=== PATIENT | female | born 1950 | race Caucasian/White ===

== ENCOUNTER 2019-11-01 05:18 | Day surgery (SDC) | payer MEDICARE, OTHER, SELFPAY ==
[2019-11-01] VITALS (9 sets, daily range): BP systolic 106–127; BP diastolic 67–77; PULSE 54–65; RESP 14–19; TEMP 36.7–36.8; O2SAT 96–100; BMI 24.5
[2019-11-01 07:44] LABS: Basophils Absolute Auto 0.1 K/mm3 (0.0-0.1); Eosinophils Absolute Auto 0.3 K/mm3 (0-0.3); Eosinophils Percent Auto 6.3 % (0-4.4); Hematocrit 37.1 % (37.0-47.0); Hemoglobin 12.3 g/dL (12.0-15.0); Lymphocytes Absolute Auto 1.44 K/mm3 (0.9-3.2); Lymphocytes Percent Auto 29.3 % (18.3-44.2); Mean Corpuscular HGB Conc 33.2 g/dl (32-36); Mean Corpuscular Hemoglobin 29.6 pg (26-34); Mean Corpuscular Volume 89.4 fl (80-100); Mean Platelet Volume 9.9 fl (7.4-10.4); Monocytes Absolute Auto 0.7 K/mm3 (0.1-0.6); Monocytes Percent Auto 13.4 % (2.6-8.5); Neutrophils Absolute Auto 2.5 K/mm3 (1.3-6.7); Platelet Count Result 216 k/mm3 (150-375); Red Blood Count 4.15 M/mm3 (4.2-5.4); Red Cell Distribution Width 13.4 % (11.5-14.5); White Blood Count 4.9 K/mm3 (4.5-10.0)
[2019-11-01 07:55] LABS: Blood Urea Nitrogen 18 mg/dL (7-17); Calcium 10.3 mg/dL (8.4-10.2); Carbon Dioxide 27 mmol/L (22-30); Chloride 106 mmol/L (98-107); Estimated Glomerular Filt Rate 45; Glucose 98 mg/dL (65-105); Potassium 3.9 mmol/L (3.4-5.0); Sodium 140 mmol/L (137-145)
[2019-11-01 08:01] LABS: INR 0.9; Prothrombin Time 12.1 Seconds (11.1-14.7)
--- NOTE | 2019-11-01 08:21 | WPDMODSED ---
Moderate Sedation Note-Pt Data Patient Data Diagnosis: Coronary artery disease with previous anterior wall MA and PCI Recent episode of chest pain Nuclear stress with abnormal finding per chart Present Complaint: No complaints this morning Procedure to be performed/Plan: Left heart catheterization Allergies Allergy/AdvReac Type Severity Reaction Status Date / Time niacin Allergy Intermediate Hives / Verified 09/02/19 07:00 Red Face Sulfa (Sulfonamide Allergy Mild Unknown Verified 09/02/19 07:00 Antibiotics) Home Medications Medication Instructions Recorded Confirmed Type atenolol [Tenormin] 25 mg PO DAILY 08/27/19 11/01/19 History atorvastatin [Lipitor] 40 mg PO DAILY 08/27/19 11/01/19 History lamotrigine [Lamictal] 100 mg PO DAILY 08/27/19 11/01/19 History aspirin 81 mg PO DAILY 11/01/19 11/01/19 History calcium carbonate-vitamin D3 1 tablet PO BID 11/01/19 11/01/19 History [Calcium 500 + D] levothyroxine [Tirosint] 50 mcg PO DAILY 11/01/19 11/01/19 History nitroglycerin [Nitrostat] 0.4 mg SUBLINGUAL ONCE 11/01/19 11/01/19 History Current Medications: Active Medications Sodium Chloride (Normal Saline Iv) 500 mls @ 100 mls/hr IV CONT .Q5H [facility] Sedation/Anesthesia: No previous sedation/anesthesia problems (including family history). [facility] Past Medical History Medical History (Updated 09/02/19 @ 07:16 by Herman Chavez DO) Bipolar affect, depressed CAD (coronary artery disease) Hypothyroidism Surgical History Surgical History (Updated 09/02/19 @ 07:16 by Herman Chavez DO) History of coronary artery stent placement 2010 Social History Social History Gender identity (if verbalized by the patient): Female Mod Sed Physical Exam Physical Exam Pre Procedural Exam: Normal: Appearance, Neck, Throat, Airway, Lungs, Heart Size, Heart Rate, Heart Rhythm, Neuro Exam and Extremities Hours since solid foods: 12 Hours since liquid intake: 12 Internal Medicine - PN: Obj Da Meds/Results Medications: Active Medications Generic Name Dose Route Start Last Admin Trade Name Freq PRN Reason Stop Dose Admin Sodium Chloride 500 mls @ 100 mls/hr 11/01/19 06:10 Normal Saline Iv IV CONT .Q5H BELL Labs CBC & Chem 7: 11/01/19 07:37 11/01/19 07:37 Labs: Laboratory Results - last 24 hr 11/01/19 11/01/19 11/01/19 07:37 07:37 07:37 WBC 4.9 RBC 4.15 L Hgb 12.3 Hct 37.1 MCV 89.4 MCH 29.6 MCHC 33.2 RDW 13.4 Plt Count 216 MPV 9.9 Immature Gran % (Auto) 0.0 Neut % (Auto) 50.0 Lymph % (Auto) 29.3 [place] % (Auto) 13.4 H Eos % (Auto) 6.3 H Baso % (Auto) 1.0 Lymph # (Auto) 1.44 [place] # (Auto) 0.7 H Eos # (Auto) 0.3 Baso # (Auto) 0.1 Abs Immat Gran (auto) 0.00 Absolute Neuts (auto) 2.5 Absolute Nucleated RBC 0.0 Nucleated RBC % 0.0 PT 12.1 INR 0.9 Sodium 140 Potassium 3.9 Chloride 106 Carbon Dioxide 27 BUN 18 H Creatinine 1.20 H Estim Creat Clear Calc Not Reportable Estimated GFR 45 L Glucose 98 Calcium 10.3 H ASA Classification/Sedation ASA Classification/Sedation ASA Class: II Emergent: No Risks: Risks, benefits and alternatives explained and patient/family accepted plan for sedation. Patient re-evaluated immediately prior to sedation.
--- NOTE | 2019-11-01 09:19 | WPDCARDPROC ---
Cardiac Cath Procedure Note Date of procedure:: 11/01/19 Performing physician:: Clarke Bright MD Indication:: Recent episode of chest pain history of coronary disease with anterior wall MO in 2010 treated with emergency LAD stenting abnormal nuclear stress test Brief clinical history:: this 69-year-old patient who presented in 2010 with acute anterior infarction which time she underwent emergency PCI with stenting of mid LAD. She has done well following up and recently had an episode of chest pain which triggered a nuclear stress test and because of abnormal findings a follow-up angiogram has now been recommended. She is no longer reporting further symptoms Procedure Procedure performed:: left heart catheterization with left ventriculography and coronary angiography Angio-Seal to right femoral artery Sedation/Medication given:: fentanyl 50 mg Versed 2 mg case start time 858 case end time 913 sedation provided by Wagner Ba RN, trained observer Access site:: right femoral artery Estimated blood loss:: 15-20 cc Procedure note:: patient was brought to the cardiac catheterization lab in the postabsorptive state the right femoral triangle was prepared and draped in the usual fashion. Using the modified Seldinger technique the sheath was placed into the right femoral artery. Left heart catheterization was then carried out. A 5 Armenian angled pigtail catheter was used to measure left-sided hemodynamics and to injected LV g in a are AO projection. Following this the pigtail catheter was withdrawn and replaced with a JR4 catheter. This was used to engage inject the right coronary artery orthogonal projections. Following this a FL4 left coronary catheter was placed ascending aorta. I could not engage the left main with this catheter is at had a very superior takeoff. An F FL 3.5 catheter was then placed into the ascending aorta which easily engaged the left main. Angiography of the left coronary artery was then carried out over this the procedure was terminated and angiogram was done of the femoral artery through the sheath after which an Angio-Seal device deployed with a good hemostatic result. 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 Findings:: Hemodynamics: Central aortic pressure 150 over 82 ventricle 60 over 10 end-diastolic pressure 16 there is no systolic gradient on pullback across the aortic valve. the left ventricle is of normal size. The contractility is difficult to assess because the patient had a run of ventricular tachycardia stimulated by the left ventricular injection. The visually estimated ejection fraction is 40% but should not be reported as an accurate ejection fraction because of the a ventricular tachycardia that was present during the injection Left main coronary artery has a severe very superior takeoff it is moderate caliber free of disease and is widely patent the LAD is a moderate caliber artery extending down to the apex. The mid LAD has visible stent material from her previous intervention. The LAD is smooth and widely patent there is no evidence of loss of lumen in the stented segment or anywhere else in the LAD circumflex is a [id number] caliber vessel giving rise to the marginal branches the circumflex system is smooth and angiographically normal right coronary artery is moderate to large in caliber and dominant to the posterior circulation the RCA has minimal luminal irregularities in the 2nd portion but no flow limiting or significant coronary artery disease. Conclusion:: Right coronary dominant circulation with no evidence of stenosis at this time stented LAD from 2010 remains widely patent left ventricular function difficult to assess as the patient had a run of ventricular tachycardia during the LV g
--- NOTE | 2019-11-01 13:20 | SUR.PHASEII ---
1315-pt given D/C orders and instructions. Questions answered and verbalized understanding. AOx4. PIV removed intact. Groin soft and non-tender, no evidence of bleeding or hematoma noted. Strong right pedal pulse noted. Taken via wheelchair to waiting vehicle. No distress noted or verbalized at time of departure.
== END 2019-11-01 13:15 | disposition home or self-care (01) ==
PROVIDERS: PCP Family Medicine; Visit Provider Specialist
PROC: 4A023N7 Measurement of Cardiac Sampling and Pressure, Left Heart, Percutaneous Approach (ICD-10-PCS; CPT 93452; principal; 2019-11-01 08:30)
DX: I25.10 Atherosclerotic heart disease of native coronary artery without angina pectoris (principal); I47.2 Ventricular tachycardia; R94.39 Abnormal result of other cardiovascular function study; R07.9 Chest pain, unspecified; Z95.5 Presence of coronary angioplasty implant and graft; E03.9 Hypothyroidism, unspecified; F31.9 Bipolar disorder, unspecified; Z79.82 Long term (current) use of aspirin
CPT/HCPCS: 36415; 80048; 85025; 85610; 93458; C1760; C1887; C1894; G0269; J1644; J2250; J3010; J7040

== ENCOUNTER 2021-01-05 14:33 | Emergency (ER) | payer MEDICARE, OTHER, SELFPAY ==
[2021-01-05 14:35] VITALS: BP 154/74; PULSE 63; RESP 14; TEMP 36.6; O2SAT 98
--- NOTE | 2021-01-05 14:52 | ED.WOUNDLAC ---
HPI - Wound/Laceration General Chief Complaint: Wound/Laceration Stated Complaint: hand laceration Time Seen by Provider: 01/05/21 14:40 History of Present Illness HPI narrative: finger injury. Shortly before coming in she cut the skin from the lateral portion of the left index finger. She has mild pain. She has not been able to get the bleeding under control. No blood thinners. unsure of last tetanus shot. Related Data Home Medications Medication Instructions Recorded Confirmed atenolol [Tenormin] 25 mg PO DAILY 08/27/19 11/01/19 atorvastatin [Lipitor] 40 mg PO DAILY 08/27/19 11/01/19 lamotrigine [Lamictal] 100 mg PO DAILY 08/27/19 11/01/19 Tirosint 50 mcg PO DAILY 11/01/19 11/01/19 aspirin 81 mg PO DAILY 11/01/19 11/01/19 calcium carbonate-vitamin D3 1 tablet PO BID 11/01/19 11/01/19 [Calcium 500 + D] nitroglycerin [Nitrostat] 0.4 mg SUBLINGUAL ONCE 11/01/19 11/01/19 Allergies Allergy/AdvReac Type Severity Reaction Status Date / Time niacin Allergy Intermediate Hives / Verified 01/05/21 14:57 Red Face Sulfa (Sulfonamide Allergy Mild Unknown Verified 01/05/21 14:57 Antibiotics) Review of Systems Constitutional: Constitutional: Denies chills and Denies fever(s) Cardiovascular: Cardiovascular: Denies chest pain Respiratory: Respiratory: Denies dyspnea Gastrointestinal: Gastrointestinal: Denies nausea Neurologic: Denies numbness and Denies weakness Hematologic/Lymphatic: Hematologic/Lymphatic: Denies easy bleeding and Denies easy bruising PMFSH Past Medical History Medical History Bipolar affect, depressed CAD (coronary artery disease) Hypothyroidism Surgical History Surgical History History of coronary artery stent placement 2010 Social History Social History Gender identity (if verbalized by the patient): Female Exam Const: General: healthy appearing, no acute distress and alert Nutritional Appearance: well nourished Orientation/consciousness: patient oriented x3 HENMT: Head: normal to inspection Resp: Effort & Inspection: normal respiratory effort Cardio: Other: 2+ left radial Skin: Other: 0.5x4 cm skin avulsion to left index finger Neuro: General: patient oriented x3, moves all extremities and no focal motor deficits Extrem: Other: Full ROM Course Vital Signs Vital signs: Vital Signs Temperature 36.6 C 01/05/21 14:35 Pulse Rate 63 01/05/21 14:35 Respiratory Rate 14 01/05/21 14:35 Blood Pressure 154/74 H 01/05/21 14:35 Pulse Oximetry 98 01/05/21 14:35 Temperature 36.6 C 01/05/21 14:35 Pulse Rate 63 01/05/21 14:35 Respiratory Rate 14 01/05/21 14:35 Blood Pressure 154/74 H 01/05/21 14:35 Pulse Oximetry 98 01/05/21 14:35 MDM - Wound/Laceration Differential Diagnosis Differential diagnosis: Likely avulsion of skin Discharge Plan Discharge Clinical Impression: Avulsion of skin Patient Disposition: Home, Self-Care Condition: Stable Instructions: Skin Avulsion (ED) Prescriptions: No Action atorvastatin [Lipitor] 40 mg tablet 40 mg PO DAILY RF: 0 atenolol [Tenormin] 25 mg tablet 25 mg PO DAILY RF: 0 lamotrigine [Lamictal] 100 mg tablet 100 mg PO DAILY RF: 0 nitroglycerin [Nitrostat] 0.4 mg Tablet, Sublingual 0.4 mg SUBLINGUAL ONCE RF: 0 aspirin 81 mg Tablet,Chewable 81 mg PO DAILY RF: 0 calcium carbonate-vitamin D3 [Calcium 500 + D] 500 mg(1,250mg) -200 unit Tablet 1 tablet PO BID RF: 0 Tirosint 50 mcg Capsule 50 mcg PO DAILY RF: 0 Follow-up/Referrals: Anusha,Allie Mullins MD [Primary Care Provider] -
[2021-01-05] MEDS: CELLULOSE OXIDIZED 2 x 3 INCH 1 PKT XX (15:13)
[2021-01-05] MEDS: TETANUS,DIPHTHERIA,AC PERTUSSIS ADULT (0.5 ML) BOOSTRIX IM (15:13)
== END 2021-01-05 15:31 | disposition home or self-care (01) ==
LOC: ANHED 15:24
PROVIDERS: Emergency Provider Emergency Medicine; PCP Family Medicine
DX: S61.211A Laceration without foreign body of left index finger without damage to nail, initial encounter (principal); W26.9XXA Contact with unspecified sharp object(s), initial encounter; Z23 Encounter for immunization; E03.9 Hypothyroidism, unspecified; I25.10 Atherosclerotic heart disease of native coronary artery without angina pectoris; F31.9 Bipolar disorder, unspecified
CPT/HCPCS: 90471; 90715; 99282

== ENCOUNTER 2021-10-29 14:14 | Emergency (ER) | payer MEDICARE, OTHER, SELFPAY ==
--- NOTE | ~2021-10-29 | XR_ITS ---
EXAMINATION: XR hip RT 2V w AP pelvis DATE: 10/29/2021 17:03 INDICATION: Medial right hip pain post fall TECHNIQUE: Anteroposterior view of the pelvis and anteroposterior and frog-leg lateral views of the r ight hip were obtained. COMPARISON: None. FINDINGS: Normal alignment in the hips and pelvis. Old healed fracture at the mid right femoral diaphysis. Resi dual lucent intramedullary jacqueline fixation tract and some associated heterotopic ossicles at the greater trochanter. No acute fracture. Mild bilateral hip osteoarthritis. Mild lower lumbar spondylosis. Sof t tissues are unremarkable. IMPRESSION: 1. Mild bilateral hip osteoarthritis. No acute osseous abnormality. Reviewed, dictated and finalized at location A. CAL REVIEW SPECIALIST
[2021-10-29 14:31] VITALS: BP 120/62; PULSE 55; RESP 18; TEMP 36.3; O2SAT 100
[2021-10-29 16:37] VITALS: BP 159/80; PULSE 51; RESP 18; O2SAT 100
--- NOTE | 2021-10-29 17:47 | ED.LOWEXIN ---
HPI - Extremity Injury (Lower) General Chief Complaint: Extremity Injury, Lower Stated Complaint: fall/hip pain Time Seen by Provider: 10/29/21 14:36 History of Present Illness HPI Narrative: Patient is a 71-year-old female who presents ER with right hip pain. Patient had a fall from standing. Occurred just prior to arrival. She was able to ambulate to the car come out for evaluation. No numbness or tingling to the leg. She did not strike her head or lose consciousness. No shortening or external rotation. Related Data Home Medications Medication Instructions Recorded Confirmed atenolol [Tenormin] 25 mg PO DAILY 08/27/19 11/01/19 atorvastatin [Lipitor] 40 mg PO DAILY 08/27/19 11/01/19 lamotrigine [Lamictal] 100 mg PO DAILY 08/27/19 11/01/19 Tirosint 50 mcg PO DAILY 11/01/19 11/01/19 aspirin 81 mg PO DAILY 11/01/19 11/01/19 calcium carbonate-vitamin D3 1 tablet PO BID 11/01/19 11/01/19 [Calcium 500 + D] nitroglycerin [Nitrostat] 0.4 mg SUBLINGUAL ONCE 11/01/19 11/01/19 Allergies Allergy/AdvReac Type Severity Reaction Status Date / Time niacin Allergy Intermediate Hives / Verified 10/29/21 16:41 Red Face Sulfa (Sulfonamide Allergy Mild Unknown Verified 10/29/21 16:41 Antibiotics) Review of Systems Constitutional: Constitutional: Denies chills, Denies fever(s) and Denies weakness Musculoskeletal: Musculoskeletal: Reports arthralgias, Denies joint swelling and Denies muscle cramps Neurologic: Denies syncope, Denies headache(s), Denies focal weakness and Denies numbness PMFSH Past Medical History Medical History Bipolar affect, depressed CAD (coronary artery disease) Hypothyroidism Surgical History Surgical History History of coronary artery stent placement 2010 Social History Social History Gender identity (if verbalized by the patient): Female Exam Narrative: GENERAL: Well-appearing, well-nourished, and in no acute distress. HEAD: Normocephalic, atraumatic. ENT: Mucous membranes moist. CHEST: Clear to auscultation. No respiratory distress. HEART: Regular rate and rhythm. Normal peripheral pulses. EXTREMITIES: Normal range of motion. Normal strength. No edema. Mild tenderness right posterior hip with direct palpation. SKIN: Warm, dry, no rash. NEURO: Alert and oriented x3. PSYCH: Normal mood and affect. Course Vital Signs Vital signs: Vital Signs Temperature 97.3 F L 10/29/21 14:31 Pulse Rate 55 L 10/29/21 14:31 Respiratory Rate 18 10/29/21 14:31 Blood Pressure 120/62 10/29/21 14:31 Pulse Oximetry 100 10/29/21 14:31 Temperature 97.3 F L 10/29/21 14:31 Pulse Rate 51 L 10/29/21 16:37 Respiratory Rate 18 10/29/21 16:37 Blood Pressure 159/80 H 10/29/21 16:37 Pulse Oximetry 100 10/29/21 16:37 MDM - Extremity Injury (Lower) Imaging Data Radiologist's impression: ITS Impressions Hip/Pelvis X-Ray 10/29/21 17:12 IMPRESSION: 1. Mild bilateral hip osteoarthritis. No acute osseous abnormality. Discharge Plan Discharge Clinical Impression: Contusion of hip Patient Disposition: Home, Self-Care Condition: Stable Instructions: Hip Contusion (ED) Additional Instructions: Return to the ER if you suffer additional injury, you have new decreased range of motion of your leg, you have additional concerns. Prescriptions: New hydrocodone-acetaminophen 5-325 mg tablet 1 tablet PO Q6H PRN (Reason: pain) Qty: 6 RF: 0 No Action atorvastatin [Lipitor] 40 mg tablet 40 mg PO DAILY RF: 0 atenolol [Tenormin] 25 mg tablet 25 mg PO DAILY RF: 0 lamotrigine [Lamictal] 100 mg tablet 100 mg PO DAILY RF: 0 nitroglycerin [Nitrostat] 0.4 mg Tablet, Sublingual 0.4 mg SUBLINGUAL ONCE RF: 0 aspirin 81 mg Tablet,Chewable 81 mg PO DAILY Steve
[2021-10-29] MEDS: HYDROcodone/acetaminophen (*CRX) 5-325 MG TABLET 1 TAB PO (18:01)
[2021-10-29 18:08] VITALS: BP 109/74; PULSE 57; RESP 18; O2SAT 99
== END 2021-10-29 18:08 | disposition home or self-care (01) ==
PROVIDERS: Emergency Provider Emergency Medicine; PCP Family Medicine
DX: S70.01XA Contusion of right hip, initial encounter (principal); I25.10 Atherosclerotic heart disease of native coronary artery without angina pectoris; E03.9 Hypothyroidism, unspecified; Z79.82 Long term (current) use of aspirin; Z95.5 Presence of coronary angioplasty implant and graft; M16.0 Bilateral primary osteoarthritis of hip; W19.XXXA Unspecified fall, initial encounter
CPT/HCPCS: 73502; 99283; A9270

== ENCOUNTER 2023-04-22 14:20 | Emergency (ER) | payer MEDICARE, OTHER, SELFPAY ==
[2023-04-22 15:58] VITALS: BP 187/98; PULSE 69; RESP 18; TEMP 36.4; O2SAT 99
--- NOTE | 2023-04-22 16:28 | ED.GENADULT ---
HPI - General Adult General Chief complaint: Unspecified Stated complaint: elevated bp level Time Seen by Provider: 04/22/23 16:19 Source: patient and RN notes reviewed Mode of arrival: ambulatory Limitations: no limitations History of Present Illness HPI narrative: Patient presents today with an elevated blood pressure level at home. States she checked her blood pressure this morning and it was 180/121. She became alarmed at this and wanted to come in for evaluation. She is not complaining of any additional symptoms to include chest pain, shortness of breath, headache, dizziness, lightheadedness, nausea or vomiting, numbness or tingling. Patient takes 25 mg of atenolol daily. Due to IT issues, she has not been able to get an appointment with her doctor. States she has been under lot of stress recently taking care of her parents. Related Data Home Medications Medication Instructions Recorded Confirmed atenolol 25 mg tablet (Tenormin) 25 mg PO DAILY 08/27/19 04/22/23 lamotrigine 100 mg tablet 100 mg PO DAILY 08/27/19 04/22/23 (Lamictal) levothyroxine 50 mcg tablet 50 mcg PO DAILY 04/22/23 04/22/23 (Synthroid) simvastatin 40 mg tablet 40 mg PO DAILY 04/22/23 04/22/23 Allergies Allergy/AdvReac Type Severity Reaction Status Date / Time niacin Allergy Intermediate Hives / Verified 04/22/23 16:23 Red Face Sulfa (Sulfonamide Allergy Mild Unknown Verified 04/22/23 16:23 Antibiotics) Review of Systems Review of Systems: CONSTITUTIONAL: Denies body aches, fever, chills, or sweats. EYES: Denies visual changes, redness, or discharge. ENT: Denies rhinorrhea, congestion, sore throat, or otalgia. CARDIOVASCULAR: Denies chest pain, palpitations, or edema. RESPIRATORY: Denies cough or dyspnea. GASTROINTESTINAL: Denies abdominal pain, nausea, vomiting, or diarrhea. GENITOURINARY: Denies dysuria or hematuria. SKIN: Denies rash, itching, or wounds. MUSCULOSKELETAL: Denies back pain, joint pain, or myalgia. NEUROLOGIC: Denies headache, numbness, tingling, or weakness. PSYCH: Denies depression or anxiety. [facility] Past Medical History Medical History (Updated 04/22/23 @ 16:34 by Amaya Abreu, MIKE, JOAO) Bipolar affect, depressed CAD (coronary artery disease) Hypertension Hypothyroidism Surgical History Surgical History History of coronary artery stent placement 2010 Social History Social History Gender identity (if verbalized by the patient): Female Comments At time of signature, I have reviewed and agree with nursing past medical, surgical, social and family history unless otherwise noted. Please see nursing chart for further information. There is no relevant family history pertinent to the presenting complaint Exam Narrative: GENERAL: Well-appearing, well-nourished, and in no acute distress. HEAD: Normocephalic, atraumatic. EYES: EOMI. PERRL. No redness or drainage. Conjunctivae normal. ENT: Mucous membranes pink and moist. NECK: Normal AROM. Supple. No lymphadenopathy. CHEST: No respiratory distress. Clear to auscultation. HEART: Regular rate and rhythm. No murmur appreciated. Normal peripheral pulses. MUSCULOSKELETAL: No bony tenderness. EXTREMITIES: Normal range of motion. No edema. Dorsiflexion and plantar flexion equal and strong against resistance. Hand tong carrier equal and strong. SKIN: Warm, dry, no rash. Capillary refill normal. Normal skin turgor. NEURO: No focal deficits. Alert and oriented x3. Gait steady. PSYCH: Normal affect. No signs of depression or anxiety. Course Course Level of Care: Express Care Visit Vital Signs Vital signs: Vital Signs Temperature 97.5 F L 04/22/23 15:58 Pulse Rate 69 04/22/23 15:58 Respiratory Rate 18 04/22/23 15:58 Blood Pressure 187/98 H 04/22/23 15:58 Pulse Oximetry 99 04/22/23 15:58 Oxygen Del
== END 2023-04-22 16:38 | disposition home or self-care (01) ==
PROVIDERS: Emergency Provider Nurse Practitioner; PCP Family Medicine
DX: I10 Essential (primary) hypertension (principal); I25.10 Atherosclerotic heart disease of native coronary artery without angina pectoris; E03.9 Hypothyroidism, unspecified; F31.9 Bipolar disorder, unspecified
CPT/HCPCS: 99211; G0463

== ENCOUNTER 2023-06-28 13:44 | Outpatient (CLI) | payer MEDICARE, OTHER, SELFPAY ==
[2023-06-28 14:21] LABS: Anion Gap 6 mmol/L (8-16); Blood Urea Nitrogen 24 mg/dL (7-17); Calcium 10.4 mg/dL (8.4-10.2); Carbon Dioxide 30 mmol/L (22-30); Chloride 103 mmol/L (98-107); Estimated Glomerular Filt Rate 34; Glucose 111 mg/dL (65-110); Potassium 3.8 mmol/L (3.4-5.0); Sodium 139 mmol/L (137-145)
== END 2023-06-28 13:45 | disposition home or self-care (01) ==
PROVIDERS: Visit Provider Obstetrics & Gynecology
DX: R79.89 Other specified abnormal findings of blood chemistry (principal)
CPT/HCPCS: 36415; 80048

== ENCOUNTER → 2023-06-29 13:12 | Outpatient (CLI) | payer MEDICARE, OTHER, SELFPAY ==
--- NOTE | ~2023-06-29 | US_ITS ---
EXAMINATION: US pelvic complete w TV DATE: 06/29/2023 13:57 INDICATION: Incomplete utero vaginal prolapse TECHNIQUE: Multiple transabdominal and endovaginal sonographic images of the pelvis were obtained. COMPARISON: None. FINDINGS: The uterus measures 6.0 x 2.0 x 4.3 cm. The endometrial complex measures 3 mm. There is a 3 .2 x 2.9 x 3.3 cm isoechoic mass of the left uterine body with the appearance of a subserosal fibroid . The right ovary measures 1.5 x 1.1 x 1.8 cm. The left ovary measures 2.5 x 1.2 x 2.0 cm. There is n ormal vascular flow in the ovaries. There is no free fluid in the pelvis. IMPRESSION: 1. Uterine fibroid. Reviewed, dictated and finalized at location L. ACT CENTER ANALYST IMPRESSION: 1. Uterine fibroid.
--- NOTE | ~2023-06-29 | US_ITS ---
EXAMINATION: US renal BI DATE: 06/29/2023 13:57 INDICATION: Elevated creatinine TECHNIQUE: Multiple grayscale and Doppler ultrasound images of the kidneys were obtained. COMPARISON: None. FINDINGS: The right kidney measures 9.3 x 3.3 x 5.1 cm. The left kidney measures 9.4 x 4.1 x 4.5 cm. The kidneys demonstrate normal parenchymal echogenicity. There is mild hydronephrosis versus extraren al pelvis on the left. The bladder is normal. IMPRESSION: 1. Mild atrophy of the kidneys. 2. Mild hydronephrosis versus extrarenal pelvis on the left. Reviewed, dictated and finalized at location L. SCOURER
== END ==
PROVIDERS: PCP Urology; Visit Provider Obstetrics & Gynecology
DX: R79.89 Other specified abnormal findings of blood chemistry (principal); N81.2 Incomplete uterovaginal prolapse; D25.9 Leiomyoma of uterus, unspecified
CPT/HCPCS: 76775; 76830; 76856

== ENCOUNTER 2024-02-08 11:34 | Outpatient (CLI) | payer MEDICARE, OTHER, SELFPAY ==
--- NOTE | 2024-02-08 12:26 | ECG_ITS ---
Test Date: 2024-02-08 12:37:31 Measurements Intervals [place] Rate: 52 P: 34 [place]: 128 QRS: 1 QRSD: 84 T: 42 QT: 384 QTc: 358 Interpretive Statements SINUS BRADYCARDIA LOW QRS VOLTAGE IN PRECORDIAL LEADS [QRS DEFLECTION < 1.0 mV IN CHEST LEADS] ABNORMAL ECG No previous ECG available for comparison Electronically Signed On 02-08-2024 16:04:51 CDT by Emmett Palomares M.D.
[2024-02-08 12:50] LABS: Basophils Absolute Auto 0.1 K/mm3 (0.0-0.1); Basophils Percent Auto 0.8 % (0.2-1.2); Eosinophils Absolute Auto 0.3 K/mm3 (0-0.3); Eosinophils Percent Auto 4.8 % (0-4.4); Hematocrit 35.8 % (37.0-47.0); Hemoglobin 11.8 g/dL (12.0-15.0); Immature Granulocyte Absolute 0.02 K/mm3 (0.00-0.031); Immature Granulocyte Percent A 0.3 % (0-0.5); Lymphocytes Absolute Auto 1.51 K/mm3 (0.9-3.2); Lymphocytes Percent Auto 23.3 % (18.3-44.2); Mean Corpuscular Hemoglobin 30.6 pg (26-34); Mean Platelet Volume 10.7 fl (7.4-10.4); Monocytes Absolute Auto 0.7 K/mm3 (0.1-0.6); Monocytes Percent Auto 11.4 % (2.6-8.5); Neutrophils Absolute Auto 3.8 K/mm3 (1.3-6.7); Neutrophils Percent Auto 59.4 % (45.5-73.1); Platelet Count Result 220 k/mm3 (150-375); Red Blood Count 3.85 M/mm3 (4.2-5.4); Red Cell Distribution Width 13.6 % (11.5-14.5); White Blood Count 6.5 K/mm3 (4.5-10.0)
[2024-02-08 12:59] LABS: Prothrombin Time 13.4 Seconds (11.1-14.7)
[2024-02-08 13:00] LABS: Partial Thromboplastin Time 31.1 Seconds (22.3-36.8)
[2024-02-08 13:02] LABS: Alanine Aminotransferase 56 U/L (6-35); Albumin Level 4.7 g/dL (3.5-5.1); Alkaline Phosphatase 85 U/L (38-126); Anion Gap 8 mmol/L (4-12); Aspartate Amino Transferase 51 U/L (14-36); Bilirubin,Total 0.6 mg/dL (0.2-1.3); Blood Urea Nitrogen 25 mg/dL (7-17); Calcium 10.9 mg/dL (8.4-10.2); Carbon Dioxide 29 mmol/L (22-30); Chloride 104 mmol/L (98-107); Estimated Glomerular Filt Rate 32; Glucose 92 mg/dL (65-110); Potassium 4.6 mmol/L (3.4-5.0); Sodium 141 mmol/L (137-145)
== END 2024-02-08 11:35 | disposition home or self-care (01) ==
LOC: ANHSURGERY 11:39
PROVIDERS: PCP Family Medicine; Visit Provider Urology
DX: N81.2 Incomplete uterovaginal prolapse (principal); I25.10 Atherosclerotic heart disease of native coronary artery without angina pectoris; Z01.818 Encounter for other preprocedural examination
CPT/HCPCS: 36415; 80053; 85025; 85610; 85730; 86850; 86900; 86901; 93005

== ENCOUNTER 2024-02-19 00:59 | Day surgery (SDC) | payer MEDICARE, OTHER, SELFPAY ==
--- NOTE | 2024-02-08 11:09 | PC.NURSE ---
Addendum entered by Elizabeth Juan RN 02/08/24 12:10: PT INSTRUCTED NOT TO TAKE LAMOTRIGINE AM OF SURGERY, BUT TO TAKE NIGHT BEFORE SURGERY SHE ROUTINELY DOSE - UNDERSTANDING VOICED Original Note: PRE-OP INSTRUCTIONS PLEASE READ CAREFULLY Report to the Outpatient Waiting Room, entrance under the green pavilion located off [facility], at time _0600_ on date _02/19/24_. Planned Procedure Time: _0730_. PACK A SMALL OVERNIGHT BAG AND LEAVE IN THE CAR Time changes happen often and if your time is changed the preop area will call you the afternoon before. - You and your visitor will be asked to self-screen and do not enter if you have any COVID symptoms. - A mask is optional within the hospital at this time. -VISITING HOURS 8AM-8PM Patients may have clear liquids (water, carbonated beverages, clear teas, apple juice) until 3 hours prior to surgery (0430 AM) with a maximum of 20 ounces. - No food from midnight until time of surgery Take the following medications with a SIP of water the morning of surgery: _ATENOLOL, LAMOTRIGINE, LEVOTHYROXINE_ DO NOT STOP ANY OF YOUR OTHER PRESCRIPTION MEDICATIONS PRIOR TO SURGERY ?EXCEPT THE FOLLOWING Medications to discontinue - _ASPIRIN PER DR. LE, CALL FOR INSTRUCTIONS [phone]_ Medications to discontinue per ANESTHESIA - _VITAMINS/SUPPLEMENTS 3 DAYS PRIOR TO SURGERY, Date to take last dose 02/15/24_ Please no make-up, nail belarusian, hairspray, perfume, deodorant, or body powder the day of surgery. No jewelry (including any body piercings) or valuables the day of surgery, leave them at home. Please take a shower or bath the night before, or the morning of, surgery with an antibacterial soap. Wear comfortable, loose fitting clothing. - Jewelry must be removed prior to entering the operating room. Rings and piercings that are not removed may be cut off. - The hospital will not accept responsibility for valuables. - Please leave all valuables, including medications, at home the day of surgery. If you are going home after surgery, a licensed armored truck driver must drive you home. - NO public transportation without another adult if you receive anesthesia. - We recommend that an adult stay with you for 24 hours following discharge. - We also recommend that you do not drive, make important decision, drink alcoholic beverages, or take any drugs that were not prescribed by your health care provider for at least 24 hours after your discharge time. Follow any additional instructions given to you from your surgeon. If you or anyone in your household have experienced Covid symptoms in the past week, please notify your surgeon or the nurse liaison at the phone number below for possible testing. Instructions given to _PATIENT_and asked if any additional questions and then verbalized understanding. Patient advised to call surgeon office or pre surgery nurse liaison [phone] if any additional questions.
[2024-02-08 11:59] VITALS: BP 116/66; PULSE 54; RESP 18; TEMP 37.1; O2SAT 100; BMI 25.4
--- NOTE | 2024-02-18 07:43 | PM.IMHP ---
H&P: HPI History of Present Illness Date/Time: 02/18/24 07:43 Chief Complaint: Pelvic organ prolapse Narrative: 73-year-old with cystocele and uterine prolapse. No stress incontinence by history or by urodynamics Review of Systems Review of Systems: All systems reviewed & are unremarkable except as noted in HPI and below PMFSH Past Medical History Medical History Bipolar affect, depressed CAD (coronary artery disease) Hypertension Hypothyroidism Surgical History Surgical History History of coronary artery stent placement 2010 Social History Social History Smoking status: Never smoker Second hand tobacco smoke exposure: No Alcohol intake: current Alcohol use details: STATES MAYBE 1 DRINK EVERY 3 MONTHS Substance use: never Substance use type: does not use Lack of Transportation: No Lack of Food: Never True Current Housing: I Have Housing Concerned About Future Housing: No Difficulty Paying Gas/Electric Bills: No Difficulty Paying for Meds: No Currently Unemployed: No Education: Bachelor's Degree Difficulty w/ Childcare or Family Care: No Living arrangements: alone Occupation/Education: retired Gender identity (if verbalized by the patient): Female Spiritual care concerns: No Meds Home Medications and Allergies Home Medications Medication Instructions Recorded Confirmed Type atenolol 25 mg tablet (Tenormin) 25 mg PO DAILY 08/27/19 02/08/24 History lamotrigine 100 mg tablet 100 mg PO DAILY 08/27/19 02/08/24 History (Lamictal) levothyroxine 50 mcg tablet 50 mcg PO DAILY 04/22/23 02/08/24 History (Synthroid) rosuvastatin 20 mg tablet 20 mg PO DAILY 06/27/23 02/08/24 History Fish Oil 1 tab-cap DAILY 02/08/24 02/08/24 History aspirin 81 mg capsule 81 mg PO DAILY 02/08/24 02/08/24 History calcium carbonate 500 mg-vitamin 1 tablet PO BID 02/08/24 02/08/24 History D3 5 mcg (200 unit) tablet (Calcium 500 + D) cholecalciferol (vitamin D3) 50 50 mcg PO DAILY 02/08/24 02/08/24 History mcg (2,000 unit) capsule lifitegrast 5 % eye drops in a 1 drp EACH EYE QAM AND QPM PRN Dry 02/08/24 02/08/24 History dropperette (Xiidra) Eye(S) telmisartan 40 mg tablet 40 mg DAILY 02/08/24 02/08/24 History vit C 250 mg-E 90 mg-zinc 40 1 tablet PO QAM AND QPM 02/08/24 02/08/24 History mg-copper 1 [id number] chew tablet (PreserVision AREDS-2) Allergies Allergy/AdvReac Type Severity Reaction Status Date / Time niacin Allergy Intermediate Hives / Verified 06/27/23 09:57 Red Face Sulfa (Sulfonamide Allergy Mild Hives Verified 02/08/24 11:51 Antibiotics) Exam Narrative: no acute distress alert and oriented x3 anterior wall at +4 apex at +1 Assessment and Plan Assessment and plan (1) Cystocele with incomplete uterovaginal prolapse: Code(s): N81.2 - Incomplete uterovaginal prolapse Status: Acute Assessment and Plan: robotic colpopexy. Her header machine operator will perform supracervical hysterectomy. She understands risks of bleeding, infection, damage surrounding organs, damage to the urinary tract, vaginal mesh extrusion, urinary tract mesh erosion, obstructive voiding requiring secondary procedure, hip and leg pain, dyspareunia, postoperative incontinence and retention she agrees to proceed
[2024-02-19] VITALS (11 sets, daily range): BP systolic 100–152; BP diastolic 52–78; PULSE 52–84; RESP 16–24; TEMP 36.2–36.8; O2SAT 96–100; BMI 25.0
--- NOTE | 2024-02-19 06:27 | PM.IMHP ---
H&P: HPI History of Present Illness Date/Time: 02/19/24 06:27 Chief Complaint: prolapse Narrative: Elizabeth is a 73yo postmenopausal [id number] who presents for surgical repair of her proalpse. Pap normal 06/2023. 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 She does report frequent night time wakening and incomplete emptying. No dysuria. Many years ago, she did try a pessary and it didn't work. She denies pelvic pain or PMB. She does us estrogen cream rarely. Review of Systems Constitutional: Constitutional: Denies chills, Denies fever(s) and Denies headache(s) Eyes: Eyes: Denies change in vision ENT: Denies dizziness and Denies headache(s) Cardiovascular: Cardiovascular: Denies chest pain and Denies dyspnea Respiratory: Respiratory: Denies cough and Denies dyspnea Gastrointestinal: Gastrointestinal: Denies abdominal pain and Denies change in stool character Genitourinary: Genitourinary: Denies abnormal vaginal bleeding, Reports nocturia, Denies pelvic pain, Reports urinary incontinence, Reports urinary urgency, Denies vaginal discharge, Denies vaginal odor and Denies vaginal pruritus Neurologic: Denies dizziness and Denies headache(s) Psychiatric: Psychiatric: Denies anxiety and Denies depression PMF Past Medical History Medical History Bipolar affect, depressed CAD (coronary artery disease) Hypertension Hypothyroidism Surgical History Surgical History History of coronary artery stent placement 2010 Social History Social History Smoking status: Never smoker Second hand tobacco smoke exposure: No Alcohol intake: current Alcohol use details: STATES MAYBE 1 DRINK EVERY 3 MONTHS Substance use: never Substance use type: does not use Lack of Transportation: No Lack of Food: Never True Current Housing: I Have Housing Concerned About Future Housing: No Difficulty Paying Gas/Electric Bills: No Difficulty Paying for Meds: No Currently Unemployed: No Education: Bachelor's Degree Difficulty w/ Childcare or Family Care: No Living arrangements: alone Occupation/Education: retired Gender identity (if verbalized by the patient): Female Spiritual care concerns: No Meds Home Medications and Allergies Home Medications Medication Instructions Recorded Confirmed Type atenolol 25 mg tablet (Tenormin) 25 mg PO DAILY 08/27/19 02/08/24 History lamotrigine 100 mg tablet 100 mg PO DAILY 08/27/19 02/08/24 History (Lamictal) levothyroxine 50 mcg tablet 50 mcg PO DAILY 04/22/23 02/08/24 History (Synthroid) rosuvastatin 20 mg tablet 20 mg PO DAILY 06/27/23 02/08/24 History Fish Oil 1 tab-cap DAILY 02/08/24 02/08/24 History aspirin 81 mg capsule 81 mg PO DAILY 02/08/24 02/08/24 History calcium carbonate 500 mg-vitamin 1 tablet PO BID 02/08/24 02/08/24 History D3 5 mcg (200 unit) tablet (Calcium 500 + D) cholecalciferol (vitamin D3) 50 50 mcg PO DAILY 02/08/24 02/08/24 History mcg (2,000 unit) capsule lifitegrast 5 % eye drops in a 1 drp EACH EYE QAM AND QPM PRN Dry 02/08/24 02/08/24 History dropperette (Xiidra) Eye(S) telmisartan 40 mg tablet 40 mg DAILY 02/08/24 02/08/24 History vit C 250 mg-E 90 mg-zinc 40 1 tablet PO QAM AND QPM 02/08/24 02/08/24 History mg-copper 1 [id number] chew tablet (PreserVision AREDS-2) Allergies Allergy/AdvReac Type Severity Reaction Status Date / Time niacin Allergy Intermediate Hives / Verified 02/19/24 06:19 Red Face Sulfa (Sulfonamide Allergy Mild Hives Verified 02/19/24 06:19 Antibiotics) Exam Const: General: cooperative, healthy appearing, comfortable and no acute distress Orientation/conscious
--- NOTE | 2024-02-19 06:30 | WPDHPUPDATE1 ---
History and Physical Update Update Date/Time: 02/19/24 06:30 History and Physical has been reviewed, including an updated exam of the patient. There are NO changes in the patient's condition. Risks, benefits, and alternatives have been discussed and questions answered. Patient agrees to proceed with procedure; combined case with Dr. Alejandra.
[2024-02-19] MEDS: LACTATED RINGERS 1,000 ML 30 ML IV CONT ×2 (06:48→10:09)
--- NOTE | 2024-02-19 06:59 | WPDANESEPPF ---
Anes - Initial Pre Proc Eval Procedure: Operation Date: 02/19/24 07:30 Proposed Procedures p Robotic Sacrocolpopexy, Urethral Sling, - Isaac Alejandra MD s Robotic Assisted Laparoscopic Supracervical Hysterectomy with Bilateral Salpingo-oophorectomy - Bev Kemp MD Date/Time: 02/19/24 06:59 Surgeon: Isaac Alejandra MD Pre Op Diagnosis: cystocele, uterine prolapse Patient Data Age: 73 Gender: F Height: 1.55 m Weight: 60.2 kg Last Vital Signs Temp 36.6 C 02/19/24 06:05 Pulse 54 L 02/19/24 06:05 Resp 18 02/08/24 11:59 BP 111/71 02/19/24 06:05 Pulse Ox 98 02/19/24 06:05 O2 Del Method Room Air 02/19/24 06:05 Allergies Allergy/AdvReac Type Severity Reaction Status Date / Time niacin Allergy Intermediate Hives / Verified 02/19/24 06:19 Red Face Sulfa (Sulfonamide Allergy Mild Hives Verified 02/19/24 06:19 Antibiotics) Home Medications Medication Instructions Recorded Confirmed Type atenolol 25 mg tablet (Tenormin) 25 mg PO DAILY 08/27/19 02/08/24 History lamotrigine 100 mg tablet 100 mg PO DAILY 08/27/19 02/08/24 History (Lamictal) levothyroxine 50 mcg tablet 50 mcg PO DAILY 04/22/23 02/08/24 History (Synthroid) rosuvastatin 20 mg tablet 20 mg PO DAILY 06/27/23 02/08/24 History Fish Oil 1 tab-cap DAILY 02/08/24 02/08/24 History aspirin 81 mg capsule 81 mg PO DAILY 02/08/24 02/08/24 History calcium carbonate 500 mg-vitamin 1 tablet PO BID 02/08/24 02/08/24 History D3 5 mcg (200 unit) tablet (Calcium 500 + D) cholecalciferol (vitamin D3) 50 50 mcg PO DAILY 02/08/24 02/08/24 History mcg (2,000 unit) capsule lifitegrast 5 % eye drops in a 1 drp EACH EYE QAM AND QPM PRN Dry 02/08/24 02/08/24 History dropperette (Xiidra) Eye(S) telmisartan 40 mg tablet 40 mg DAILY 02/08/24 02/08/24 History vit C 250 mg-E 90 mg-zinc 40 1 tablet PO QAM AND QPM 02/08/24 02/08/24 History mg-copper 1 [id number]-gtiqtm chew tablet (PreserVision AREDS-2) Patient hx anesthesia problems: none Family hx anesthesia problems: none Results Review: All pre-operative results and documents have been reviewed as part of the pre-operative evaluation. [facility] Past Medical History Medical History Bipolar affect, depressed CAD (coronary artery disease) Hypertension Hypothyroidism Surgical History Surgical History History of coronary artery stent placement 2010 Social History Social History Smoking status: Never smoker Second hand tobacco smoke exposure: No Alcohol intake: current Alcohol use details: STATES MAYBE 1 DRINK EVERY 3 MONTHS Substance use: never Substance use type: does not use Lack of Transportation: No Lack of Food: Never True Current Housing: I Have Housing Concerned About Future Housing: No Difficulty Paying Gas/Electric Bills: No Difficulty Paying for Meds: No Currently Unemployed: No Education: Bachelor's Degree Difficulty w/ Childcare or Family Care: No Living arrangements: alone Occupation/Education: retired Gender identity (if verbalized by the patient): Female Spiritual care concerns: No Anes - Eval Final PreProcedure Day of Procedure 02/19/24 06:59 Patient weight: normal Heart: regular rate and rhythm Lungs: clear to auscultation Airway: Mallampati scale class II Neurological: alert and oriented Last oral intake: >/= 8 hours ASA classification: III Emergent: no Anesthetic plan: proceed Anesthesia type and monitoring: general ETT and standard monitoring Results Review: All pre-operative results and documents have been reviewed as part of the pre-operative evaluation. Informed Consent: The patient's anesthetic plan and its attendant risks and benefits were discussed with the patient/family/POA. Questions were solicited and answers
--- NOTE | 2024-02-19 07:14 | WPDHPUPDATE1 ---
History and Physical Update Update Date/Time: 02/19/24 07:14 History and Physical has been reviewed, including an updated exam of the patient. There are NO changes in the patient's condition. Risks, benefits, and alternatives have been discussed and questions answered. Patient agrees to proceed with procedure.
[2024-02-19] MEDS: KETOROLAC 15 MG/ML VIAL (*BKC) IV PUSH (07:20)
[2024-02-19] MEDS: ACETAMINOPHEN 500 MG TABLET 1000 MG PO (07:20)
[2024-02-19] MEDS: metroNIDAZOLE 500 MG/ISO 100ML 500 MG/100 ML BAG 100 MG IVPB ×2 (07:28→16:19)
[2024-02-19] MEDS: ceFAZolin 2 GM/D5W 50 ML 2 GM/50 ML BAG IVPB (07:28)
[2024-02-19] MEDS: BUPIVACAINE/EPINEPHRINE 0.5% 10 ML VIAL 20 ML INFILTRATE (08:05)
--- NOTE | 2024-02-19 08:28 | W.PM.PROC2 ---
Procedure Note - Detailed Date of Procedure 02/19/24 Pre-op Diagnosis 1. Cystocele 2. Uterine prolapse 3. Fibroid uterus Post-op Diagnosis Same Procedure Performed Robotic assisted laparoscopic supracervical hysterectomy with bilateral salpingo-oophorectomy Surgeon Bev Kemp MD Receptionist/Telephone Operator [place] Anesthesia General Findings normal fallopian tubes and ovaries bilaterally, fibroid noted on the posterior/left lateral aspect of the uterus; ~3cm. Good hemostasis at the end of hysterectomy. Description of Procedure Elizabeth was taken to the operating room where she was placed under general anesthesia without issues. She received 2 g Ancef and 500mg Metronidazole. She was then prepped and draped in the usual sterile fashion in the dorsal lithotomy position with her legs in low Ralph stirrups, her arms tucked at her side, with a strap over her chest. A time-out was performed with both Dr. Alejandra and I in the room. Dr. Alejandra then scrubbed in and placed the 5 laparoscopic ports. The patient was then placed in steep Trendelenburg, with the legs slightly lowered. Dr. Alejandra then docked the robot and placed the instruments intra-abdominally under direct visualization. I then went to the robotic console. I then started my hysterectomy on the right side. The ureter was easily identified transperitoneally and well out of the surgical field. The IP ligament was identified and serially clamped, coagulated, and transected with good hemostasis. The broad ligament was then sequentially clamped, coagulated, and transected working in the direction of the round ligament. The round ligament was clamped, coagulated, and transected. The broad ligament was then further dissected anteriorly and posteriorly skeletonizing the uterine artery. The bladder flap was then developed on the right side and carried around to the left, anteriorly. The uterine artery was then serially clamped and coagulated. Once the vessel was adequately coagulated, it was then transected with good hemostasis. The same procedure was then performed on the left side without complications. All pedicles were found to be hemostatic. The uterus was noted to be devascularized. The bladder flap was verified out of the surgical field and the uterus was transected from the cervix. Good hemostasis was noted. The uterus was bivalved and it along with the bilateral fallopian tubes, and ovaries were placed within a bag. All pedicles were once again examined and found to be hemostatic. Dr. Alejandra then took over the robot and continued his case to repair the prolapse. At the end of the case, my EBL was 10cc. Estimated Blood Loss 10 Pathology Yes (uterus, bilateral fallopian tubes and ovaries) Complications No immediate complications Condition Stable Disposition No change [facility] Billing Surgery - Charge Forward: Surgery Billing
--- NOTE | 2024-02-19 09:55 | W.PM.PROC2 ---
Procedure Note - Detailed Date of Procedure 02/19/24 Pre-op Diagnosis cystocele, uterine prolapse Post-op Diagnosis Same Procedure Performed robotic assisted laparoscopic sacral colpopexy Surgeon Isaac Alejandra MD Anesthesia General Indications this is a woman with uterine prolapse without stress incontinence. They present for surgery. They understand risks of bleeding, infection, damage to surrounding organs, damage to the bowel or urinary tract, diskitis, recurrence of prolapse, recurrent or new onset stress incontinence, vaginal or urinary tract mesh exposure, obstructive voiding requiring secondary procedure, hip and leg pain, dyspareunia, and other perioperative intraoperative and postoperative complications. They agreed to proceed. Findings See dictation Description of Procedure She was correctly identified. Informed consent is obtained. She was brought to the operating room. She was given general anesthesia. She was placed in the dorsal lithotomy position. All pressure points were padded. She was given appropriate perioperative antibiotics. A time-out was performed. I anesthetized the skin 3 fingerbreadths cephalad to the umbilicus. I incised the skin. I grasped the fascia with Mc clamps. I entered the fascia sharply in a Hason type technique. I placed Vicryl sutures for later fascial closure. the midline trocar was placed. Under direct vision 2 additional trocars were placed in the right and left upper quadrant. She was placed in steep Trendelenburg. The robot was docked. I turned her over to her processing supervisor for their portion of the procedure. That will be dictated in a separate op note. I then sat at the console. With a Sizer in the vagina I created a plane on the anterior and posterior vaginal wall for several cm taking great care not to injure the vagina bladder or rectum. I introduced the mesh into the abdomen. I sewed the anterior leaf of the mesh on the anterior vaginal wall and the posterior leaflet of mesh on the posterior vaginal wall with multiple sutures of 2 0 Ansted-Carlos taking great care not to go through and through. I reflected the colon laterally. I opened up the posterior peritoneum over the sacral promontory and carried this incision into the cul-de-sac. I freed up the edges for later retroperitonealization of the mesh. I located the anterior longitudinal ligament of the sacrum. It was cleaned off of all fatty tissues. I tensioned my mesh appropriately. I went to the bedside to perform a vaginal exam. There was good apical support without undue tension. She had very thin posterior vaginal wall. I could feel my most distal stitches. I removed those stitches and replace them more proximally without violation of the vaginal mucosa. I then sewed the proximal leaflet of mesh onto the anterior longitudinal ligament with 3 sutures of 2 0 Ansted-Carlos. I then used a 2 0 Monocryl to meticulously retroperitonealized all mesh. I allowed the colon to go back into its normal anatomic location. There is no signs of any impingement. The specimen was extracted. The abdomen was exited. Fascial sutures were closed. Wounds were irrigated. Skin was closed with Monocryl as well as surgical glue. I then performed cystoscopy. The bladder was examined. There is no surgical artifact or tumors within the bladder. There was mild trabeculation. Bilateral ureteral patency was documented by seeing clear yellow urine or passing guidewire up the ureter. There is no surgical artifact in the urethra. She was then awakened and transferred to the PACU in stable condition. Estimated Blood Loss 15 Drains No Pathology Yes Complications No immediate complications Condition Stable Disposition PACU
[2024-02-19] MEDS: ONDANSETRON INJ 4 MG/2 ML VIAL IV PUSH (10:33)
[2024-02-19] MEDS: diphenhydrAMINE HCl INJ 50 MG/ML VIAL 25 MG IV PUSH (10:51)
--- NOTE | 2024-02-19 11:30 | PC.NURSE ---
This patient, Elizabeth Cameron, was received from PACU on 02/19/24 at 1130. Patient/family oriented to unit policies and routines
[2024-02-19] MEDS: KCL 20 MEQ/D5/0.45% SOD CHL 1,000 ML 100 ML IV CONT ×2 (11:58→22:02)
[2024-02-19] MEDS: HYDROcodone/acetaminophen (*CRX) 5-325 MG TABLET 1 TAB PO (13:01)
[2024-02-19] MEDS: ROSUVASTATIN 20 MG TABLET PO ×2 (14:35→21:10)
[2024-02-19] MEDS: ceFAZolin 1 GM/NS 50 ML 1 GM/50 ML BAG IVPB ×2 (15:40→23:31)
[2024-02-19] MEDS: lamoTRIgine 100 MG TABLET PO (21:10)
[2024-02-19] MEDS: ACETAMINOPHEN 325 MG TABLET 650 MG PO (21:13)
[2024-02-20] MEDS: metroNIDAZOLE 500 MG/ISO 100ML 500 MG/100 ML BAG 100 MG IVPB ×2 (00:10→08:40)
[2024-02-20 00:15] VITALS: BP 112/62; PULSE 65; RESP 16; TEMP 36.8; O2SAT 98
[2024-02-20 05:20] VITALS: BP 102/68; PULSE 94; RESP 16; TEMP 36.5
[2024-02-20] MEDS: LEVOTHYROXINE SODIUM 50 MCG TABLET PO (05:48)
[2024-02-20 06:05] LABS: Mean Platelet Volume 10.9 fl (7.4-10.4); Platelet Count Result 158 k/mm3 (150-375)
--- NOTE | 2024-02-20 06:48 | PC.NURSE ---
0530- Pt up oob standing at bedside without complaints, pt taking few small steps with standby assist of this RN- Pt assisted back into bed, pt instructed to call when needing to void, pt agreed. Abd binder adjusted to pts comfort- 5 incisional sites on abdomen CDI, surgical glue intact
[2024-02-20] MEDS: KETOROLAC 15 MG/ML VIAL (*BKC) IV PUSH (07:15)
[2024-02-20] MEDS: ceFAZolin 1 GM/NS 50 ML 1 GM/50 ML BAG IVPB (07:18)
--- NOTE | 2024-02-20 07:24 | PM.GYNPNOP ---
DIMENSION WAREHOUSE SUPERVISOR - A/P Assessment and plan (1) S/P laparoscopic supracervical hysterectomy: Code(s): Z90.711 - Acquired absence of uterus with remaining cervical stump Status: Acute (2) S/P BSO (bilateral salpingo-oophorectomy): Code(s): Z90.722 - Acquired absence of ovaries, bilateral Status: Acute Postoperative Procedures: Procedures Operation Date: 02/19/24 07:30 Actual Procedure Side Surgeon p Robotic Sacrocolpopexy Isaac Alejandra MD s Robotic Assisted Laparoscopic Supracervical Hysterectomy with Bilateral Salpingo-oophorectomy Bev Kemp MD Postoperative day: 1 Postoperative status: doing well Postoperative plan: routine post-op care, voiding trials (passed) and discharge Time Spent With Patient Time: Total time spent is greater than 50% in coordination of care (as documented) at patient's floor/unit and/or counseling patient: Time with patient: less than 15 minutes DIMENSION WAREHOUSE SUPERVISOR- PN:Subj Post-Op Subjective Date/time seen: 02/20/24 07:20 Interval history: POD#1 Elizabeth reports doing well today. No issues overnight. Her pain is controlled with PO meds. She has tolerated regular diet. She denies any vaginal bleeding. She has voided. She has passed flatus. She has ambulated and denies any symptoms of anemia. Review of Systems Review of Systems: All systems reviewed & are unremarkable except as noted in HPI and below (HPI) Constitutional: Constitutional: Denies chills, Denies fever(s) and Denies headache(s) Eyes: Eyes: Denies change in vision ENT: Denies dizziness and Denies headache(s) Cardiovascular: Cardiovascular: Denies chest pain and Denies rapid heart rate Respiratory: Respiratory: Denies cough Genitourinary: Genitourinary: Denies abnormal vaginal bleeding Neurologic: Denies dizziness and Denies headache(s) Exam Const: General: cooperative, healthy appearing, comfortable and no acute distress Orientation/consciousness: patient oriented x3 Resp: Effort & Inspection: normal respiratory effort Auscultation: clear to auscultation bilaterally Cardio: Rate: regular rate GI: Inspection: normal to inspection and incision ( LSC incisions c/d/i) GI Palp: Yes abdominal tenderness (appropriate) and Yes Soft to palpation Auscultation: normal bowel sounds : Other: normal bleeding on pad Skin: General skin exam: normal color Neuro: General: patient oriented x3 Psych: Appearance: grossly normal Affect: normal affect Attitude: cooperative DIM[employer] W[employer]HOUSE SUPERVISOR - PN: Obj Data Vital Signs Vital Signs: Vital Signs - 24 hr 02/19/24 06:05 02/19/24 10:09 02/19/24 10:20 Temperature 97.8 F 97.1 F L Pulse Rate 54 L 67 62 Respiratory Rate 21 H 24 H Blood Pressure 111/71 152/67 H 100/53 L Pulse Oximetry 98 100 100 Oxygen Delivery Room Air Simple Face Mask Simple Face Mask Oxygen Flow Rate 8 8 02/19/24 10:35 02/19/24 10:50 02/19/24 11:05 Temperature Pulse Rate 58 L 60 56 L Respiratory Rate 20 20 20 Blood Pressure 112/60 111/65 127/59 L Pulse Oximetry 100 97 97 Oxygen Delivery Room Air Room Air Room Air Oxygen Flow Rate 02/19/24 11:20 02/19/24 11:25 02/19/24 11:41 Temperature 98.0 F Pulse Rate 52 L 56 L 54 L Respiratory Rate 20 20 16 Blood Pressure 119/72 122/57 L 128/68 Pulse Oximetry 96 98 97 Oxygen Delivery Room Air Room Air Oxygen Flow Rate 02/19/24 15:34 02/19/24 19:37 Temperature 97.6 F 98.2 F Pulse Rate 58 L 84 Respiratory Rate 18 16 Blood Pressure 101/52 L 100/78 Pulse Oximetry 97 98 Oxygen Delivery Oxygen Flow Rate Intake/Output Intake/Output: Intake & Output 02/16/24 02/17/24 02/18/24 02/19/24 23:59 23:59 23:59 23:59 Intake Total 850 Output Total 300 Balance 550 Meds/Results Medications: Active Medications Generic Name Dose Route Start Last Admin Trade Name Freq PRN Reason Stop Dose Admin Acetaminophen 650 mg 02/19/24 11:27 Acetaminophen 325 Mg Tablet PO Q4H PRN Mild Pain (1-3) or Fe
--- NOTE | 2024-02-20 07:42 | WPDANESPN ---
Anes - Prog Note Post-Op Date/Time: 02/20/24 07:42 Cardiovascular status: normal Respiratory status: normal Airway patency: baseline Mental status: baseline Post-Op hydration status: normal Vital Signs: Last Vital Signs Temp 36.5 C 02/20/24 05:20 Pulse 94 02/20/24 05:20 Resp 16 02/20/24 05:20 BP 102/68 02/20/24 05:20 Pulse Ox 98 02/20/24 00:15 O2 Del Method Room Air 02/19/24 11:25 O2 Flow Rate 8 02/19/24 10:20 Pain Score (VAS): 2/10 I/O: Intake & Output 02/19/24 02/19/24 02/20/24 15:59 23:59 07:59 Intake Total 800 1350 350 Output Total 097 300 5909 Balance 500 900 -1250 Laboratory Tests 02/20/24 05:07 02/20/24 05:07 Plt Count 158 MPV 10.9 H Post-procedural complaints: none Patient Feedback: Patient satisfied with anesthetic care.
[2024-02-20 08:00] VITALS: BP 114/63; PULSE 68; RESP 18; TEMP 37.3; O2SAT 97
[2024-02-20] MEDS: ACETAMINOPHEN 325 MG TABLET 650 MG PO (10:06)
[2024-02-20] MEDS: ENOXAPARIN 30 MG/0.3 ML SYRINGE SUB-Q (10:07)
[2024-02-20 10:08] VITALS: PULSE 64
[2024-02-20] MEDS: atenoloL 25 MG TABLET PO (10:08)
[2024-02-20] MEDS: TELMISARTAN 40 MG TABLET BY MOUTH (10:08)
[2024-02-20] MEDS: DOCUSATE SODIUM 100 MG CAPSULE PO (10:08)
== END 2024-02-20 10:23 | disposition home or self-care (01) ==
LOC: ANHSURGERY 08:27 → ANHOB2 11:29
PROVIDERS: Obstetrics & Gynecology; PCP Family Medicine; Visit Provider Urology
PROC: (CPT 57425; principal; 2024-02-19 07:30)
PROC: 0UT94ZZ Resection of Uterus, Percutaneous Endoscopic Approach (ICD-10-PCS; CPT 57425; 2024-02-19 07:30)
DX: N81.2 Incomplete uterovaginal prolapse (principal); D25.9 Leiomyoma of uterus, unspecified; N83.202 Unspecified ovarian cyst, left side; N83.201 Unspecified ovarian cyst, right side; I25.10 Atherosclerotic heart disease of native coronary artery without angina pectoris; I10 Essential (primary) hypertension; E03.9 Hypothyroidism, unspecified
CPT/HCPCS: 58542; 57425; 36415; 85049; 88307; 99199; A9270; C1781; J0330; J0690; J1100; J1170; J1200; J1650; J1836; J1885; J2371; J2405; J2704; J3010; J3480; J7030; J7120

== ENCOUNTER 2024-07-19 10:28 | Outpatient (CLI) | payer MEDICARE, OTHER, SELFPAY ==
[2024-07-19 11:55] LABS: Parathyroid Intact 66.9 pg/mL (14.5-75.2)
== END 2024-07-19 10:29 | disposition home or self-care (01) ==
LOC: ANHLAB 10:31
PROVIDERS: PCP Family Medicine; Visit Provider Internal Medicine Nephrology
DX: N18.31 Chronic kidney disease, stage 3a (principal); E83.52 Hypercalcemia
CPT/HCPCS: 36415; 83970

== ENCOUNTER 2024-09-20 08:56 | Outpatient (CLI) | payer MEDICARE, OTHER, SELFPAY ==
--- OUTSIDE RECORDS SUMMARY | 2024-09-20 09:19 | XMS_ITS | Encounter Summary ---
Author Organization [facility] Address [address] [place] [address]. [place] [address] [place] [address] Care Team Providers Care Pest Technician Name Role Phone Allie Tavares Primary Care Provider [phone] Emmett Kaye MD Unavailable [phone] Bev Kemp MD Unavailable [phone] Isaac Alejandra MD Unavailable [phone] Emmett Palomares MD Unavailable [phone] Encounter Details Date Type Department Care Team (Late st Contact Info) Description 07/01/2022 Therapy Plan [facility] [place] [address] Radha Camacho, RN Social History Tobacco Use Types Packs/Day Years Used Date Smoking Tobacco: Never Smokeless Tobacco: Never Alcohol Use Standard Drinks/Week Comments No 0 (1 standard drink = 0.6 oz pur e alcohol) PHQ-2 Answer Date Recorded PHQ-2 Score - If the patient scores above 3, please move on to questions 3-9 0 05/12/2022 Comments No Sex and Gender Information Value Date Recorded Sex Assigned at Female 09/19/2024 12:55 PM BENCH MECHANIC Legal Sex Female 7:08 PM CDT Gender Identity Not on file Sexual Orientation Not on file COVID-19 Exposure Response Date Recorded In the last 10 days, have yo u been in contact with someone who was confirmed or suspected to have Coronavirus/COVID-19? No / Unsure 06/29/2022 12:34 PM BENCH MECHANIC documented as of this encounter Plan of Treatment Not on file documented as of this encounter Visit Diagnoses Diagnosis Osteoporosis- Primary Osteoporosis, unspecified documented in this encounter Additional Health Concerns Assessment Noted Time PHQ-9 Depression Total Score: 0 11/11/19 22 8:26 AM CDT documented as of this encounter Care Teams Pest Technician Relationship Specialty Start Date End Date Allie Tavares DO [address] [place] [address] PCP - General 06/20/16 Emmett Kaye MD [address] [place] [address] Consulting Physician NEPHROLOGY 04/09/24 Bev Kemp MD [address] [place] [id number] OBGYN 04/09/24 Isaac Alejandra MD 3 [place] [address] UROLOGY 04/09/24 Emmett Palomares MD [address] [facility] [address] [place] [address] CARDIOVASCULAR DISEASE 04/09/24 documented as of this encounter
--- OUTSIDE RECORDS SUMMARY | 2024-09-20 09:19 | XMS_ITS | Encounter Summary ---
Author Organization [facility] Address [facility] [facility] [place] [address] [place] [address] Care Team Providers Care Storage Battery Charger Name Role Phone Hortencia Tavares DO Primary Care Provider [phone] Emmett Kaye MD Unavailable [phone] Bev Kemp MD Unavailable [phone] Isaac Alejandra MD Unavailable [phone] Emmett Palomares MD Unavailable [phone] Reason for Referral * Imaging (Routine) - New Request Specialty Diagnoses / Procedures Referred By Abdulaziz fernandes Referred To Contact RADIOLOGY Diagnoses Postmenopausal Procedures BONE DENSITY/DEXA Hortencia Tavares DO [address] [place] [address] Phone: tel: fax: Referral ID Status Reason Start Date Expiration Date V isits Requested Visits Authorized [id number] New Request 08/27/2024 08/27/2025 1 1 NCIAL QUANTITATIVE ANALYST * Imaging (Routine) - New Request Specialty Diagnoses / Procedures Referred By Abdulaziz fernandes Referred To Contact RADIOLOGY Diagnoses Encounter for screening mammogram for malignant neoplasm of breast Procedures MG SCREENING W EDISON NISHA DIGI Hortencia Tavares DO [address] [place] [address] Phone: tel: fax: Referral ID Status Reason Start Date Expiration Date V isits Requested Visits Authorized [id number] New Request 08/27/2024 10/25/2025 1 1 NCIAL QUANTITATIVE ANALYST Reason for Visit * Imaging (Routine) - New Request Specialty Diagnoses / Procedures Referred By Contac t Referred To Contact RADIOLOGY Diagnoses Encounter for screening mammogram for malignant neoplasm of breast Procedures MG SCREENING W EDISON NISHA DIGI Hortencia Tavares DO [address] [place] [address] Phone: tel: fax: Referral ID Status Reason Start Date Expiration Date V isits Requested Visits Authorized [id number] New Request 08/27/2024 10/25/2025 1 1 Encounter Details Date Type Department Care Team (Late st Contact Info) Description 09/19/2024 12:40 PM FINANCIAL QUANTITATIVE ANALYST Hospital Encounter [facility] Mammography [address] [place], [place] [id number] Hortencia Tavares DO [address] [place], [place] [id number] Arrived Social History Tobacco Use Types Packs/Day Years Used Date Smoking Tobacco: Never Passive Smoke Exposure: Never Smokeless Tobacco: Never Alcohol Use Standard Drinks/Week Comments No 0 (1 standard drink = 0.6 oz pur e alcohol) AUDIT-C Answer Date Recorded Q1: How often do you have a drink containing alc ohol? Monthly or less 04/09/2024 Q2: How many drinks containi ng alcohol do you have on a typical day when you are drinking? 1 or 2 04/09/2024 Q3: How often do you have si x or more drinks on one occasion? Never 04/09/2024 PHQ-2 Answer Date Recorded Patient Health Questionnaire-2 Score 0 08/27/2024 Comments No Sex and Gender Information Value Date Recorded Sex Assigned at Female 09/19/2024 12:55 PM FINANCIAL QUANTITATIVE ANALYST Legal Sex Female 7:08 PM CDT Gender Identity Not on file Sexual Orientation Not on file documented as of this encounter Plan of Treatment Not on file documented as of this encounter Procedures Procedure Name Priority Date/Time Associated Diagnosis Comments BONE DENSITY/DEXA Routine 09/19/2024 1:4 1 PM FINANCIAL QUANTITATIVE ANALYST Postmenopausal MG SCREENING W EDISON NISHA DIGI Routine 09/19/2024 1:39 PM FINANCIAL QUANTITATIVE ANALYST Encounter for screening mammogram for malignant neoplasm of breast documented in this encounter Results * BONE DENSITY/DEXA (09/19/2024 1:41 PM FINANCIAL QUANTITATIVE ANALYST) Anatomical Region Laterality Modality Bone Mammography 09/19/2024 4:12 PM FINANCIAL QUANTITATIVE ANALYST Impressions 09/19/2024 4:14 PM FINANCIAL QUANTITATIVE ANALYST IMPRESSION: 1. WHO Classification: Osteoporosis. 2. Interval increase in bone mineral density. RECOMMENDATIONS: All patients should ensure an adequate intake of dietary calcium and vitamin D. The NOF recommend adults under the age of 50 need 1000 mg of calcium and 400-800 IU of vitamin D daily. Effective therapy for the prevention and treatment of osteoporosis include bisphosphonates. FOLLOW-UP: People with diagnosed cases of osteoporosis or at high risk for fracture should have regular bone mineral density test. For patients eligible for Medicare, routine testing is allowed once every 2 years. Testing frequency can be increased to one year for patients who have rapidly progressing disease, those who are receiving or discontinuing medical therapy to restore bone mass, or have additional risk factors. Ordered By: HORTENCIA TAVARES Interpreted By: Kee Degroot, 09/19/2024 4:12 PM Narrative 09/19/2024 4:14 PM FINANCIAL QUANTITATIVE ANALYST [facility] [address] [place] [address] EXAMINATION: BONE DENSITY/DEXA INDICATIONS: Asymptomatic menopausal state COMPARISON: 06/29/2022 TECHNIQUE: DEXA bone mineral density evaluation was performed in the AP projection over the lumbar spine and both hips utilizing standard imaging techniques. FINDINGS: The BMD measured at the AP spine L1-L4 is 0.835 g/cm? with a T-score of -1.9 (previously 0.810 g/cm? with a T-score of -2.2). The BMD measured at the left femoral neck is 0.570 g/cm? with a T-score of -2.5 (previously 0.540 g/cm? with a T-score of -2.8). The BMD measured at the left hip is 0.683 g/cm? with a T-score of -2.1 (previously 0.647 g/cm? with a T-score of -2.4). The BMD measured at the right femoral neck is 0.675 g/cm? with a T-score of -1.6 (previously 0.611 g/cm? with a T-score of -2.1). The BMD measured at the right hip is 0.734 g/cm? with a T-score of -1.7 (previously 0.694 g/cm? with a T-score of -2.0). FRAX 10-year fracture risk: Major Osteoporotic Fracture: 15% Hip Fracture: 4.2% Procedure Note Kee Degroot MD - 09/19/2024 [facility] [address] [place] [address] EXAMINATION: BONE DENSITY/DEXA INDICATIONS: Asymptomatic menopausal state COMPARISON: 06/29/2022 TECHNIQUE: DEXA bone mineral density evaluation was performed in the APprojection over the lumbar spine and both hips utilizing standard imagingtechniques. FINDINGS: The BMD measured at the AP spine L1-L4 is 0.835 g/cm? with a T-score of-1.9 (previously 0.810 g/cm? with a T-score of -2.2). The BMD measured at the left femoral neck is 0.570 g/cm? with a T-score of-2.5 (previously 0.540 g/cm? with a T-score of -2.8). The BMD measured at the left hip is 0.683 g/cm? with a T-score of - 2.1(previously 0.647 g/cm? with a T-score of -2.4). The BMD measured at the right femoral neck is 0.675 g/cm? with a T-scoreof -1.6 (previously 0.611 g/cm? with a T-score of -2.1). The BMD measured at the right hip is 0.734 g/cm? with a T-score of - 1.7(previously 0.694 g/cm? with a T-score of -2.0). FRAX 10-year fracture risk: Major Osteoporotic Fracture: 15% Hip Fracture: 4.2% IMPRESSION: 1. WHO Classification: Osteoporosis. 2. Interval increase in bone mineral density. RECOMMENDATIONS: All patients should ensure an adequate intake of dietary calcium andvitamin D. The NOF recommend adults under the age of 50 need 1000 mg ofcalcium and 400-800 IU of vitamin D daily. Effective therapy for theprevention and treatment of osteoporosis include bisphosphonates. FOLLOW-UP: People with diagnosed cases of osteoporosis or at high risk for fractureshould have regular bone mineral density test. For patients eligible forMedicare, routine testing is allowed once every 2 years. Testing frequencycan be increased to one year for patients who have rapidly progressingdisease, those who are receiving or discontinuing medical therapy torestore bone mass, or have additional risk factors. Ordered By: HORTENCIA TAVARES Interpreted By: Kee Degroot, 09/19/2024 4:12 PM Hortencia Tavares DO DEXA Final Result * MG SCREENING W EDISON NISHA DIGI (09/19/2024 1:39 PM FINANCIAL QUANTITATIVE ANALYST) Anatomical Region Laterality Modality Breast Bilateral Mammography 09/19/2024 2:41 PM FINANCIAL QUANTITATIVE ANALYST Impressions 09/19/2024 2:44 PM FINANCIAL QUANTITATIVE ANALYST ===== IMPRESSION: ===== 1. ??Stable mammographic appearance with no new findings to suggest malignancy in either breast. Assessment: ACR BI-RADS 2 - BENIGN FINDING(S) Recommendation: 1:Routine Screening Bilateral Comments: Ordered By: HORTENCIA TAVARES Interpreted By: Jaskaran Neumann, 09/19/2024 2:41 PM Narrative 09/19/2024 2:44 PM FINANCIAL QUANTITATIVE ANALYST [facility] [address] [place] [address] EXAMINATION: Digital bilateral screening mammogram with 3-D tomosynthesis EXAM DATE/TIME: 09/19/2024 1:08 PM REASON FOR EXAM: ??Screening Breast Cancer ? COMPARISON: 04/03/2018. 06/29/2022 Technique: Digital screening mammography of both breasts was performed in addition to 3-D Tomosynthesis technique. This study was read with the assistance of a computer-aided detection system. Tissue density: The breasts are heterogeneously dense, which may obscure small masses. Findings: There is no new focal asymmetry, dominant mass lesion, area of skin thickening, or cluster of suspicious appearing calcifications in either breast to suggest malignancy. Procedure Note Higinio Neumann MD - 09/19/2024 [facility] [address] [place] [address] EXAMINATION: Digital bilateral screening mammogram with 3-Dtomosynthesis EXAM DATE/TIME: 09/19/2024 1:08 PM REASON FOR EXAM: Screening Breast Cancer COMPARISON: 04/03/2018. 06/29/2022 Technique: Digital screening mammography of both breasts was performed inaddition to 3-D Tomosynthesis technique. This study was read with theassistance of a computer-aided detection system. Tissue density: The breasts are heterogeneously dense, which may obscuresmall masses. Findings: There is no new focal asymmetry, dominant mass lesion, area ofskin thickening, or cluster of suspicious appearing calcifications ineither breast to suggest malignancy. ===== IMPRESSION: ===== 1. Stable mammographic appearance with no new findings to suggestmalignancy in either breast. Assessment: ACR BI-RADS 2 - BENIGN FINDING(S) Recommendation: 1:Routine Screening Bilateral Comments: Ordered By: HORTENCIA TAVARES Interpreted By: Jaskaran Neumann, 09/19/2024 2:41 PM Hortencia Tavares DO MAMMO Final Result documented in this encounter Visit Diagnoses Diagnosis Encounter for screening mammogram for malignant neoplasm of breast Other screening mammogram Postmenopausal Asymptomatic postmenopausal status (age-related) (natural) documented in this encounter Additional Health Concerns Assessment Noted Time PHQ-9 Depression Total Score: 0 11/11/19 8:26 AM CDT documented as of this encounter Care Teams Storage Battery Charger Relationship Specialty Start Date End Date Hortencia Tavares DO [address] [place] [address] PCP - General 06/20/16 Emmett Kaye MD 1 [place] [address] Consulting Physician NEPHROLOGY 04/09/24 Bev Kemp MD [address] [place] [id number] OBGYN 04/09/24 Isaac Alejandra MD 3 [facility] [place] [address] UROLOGY 04/09/24 Emmett Palomares MD [address] [facility] [address] [place] [address] CARDIOVASCULAR DISEASE 04/09/24 documented as of this encounter
--- OUTSIDE RECORDS SUMMARY | 2024-09-20 09:19 | XMS_ITS | Continuity of Care Document ---
Author Organization [facility] Address [address] [facility] [address] [place] [address] Phone Care Team Providers Care Cinnamon Grinder Name Role Phone Harmon OD, Ghassan Unavailable Unavailable Advance Directives Directive Yes / No Effective Date File Name No Information Encounters Encounter Description Practice Location Reason(s) For Visit Diagnoses Date Provider Providers Copied on Encounter [facility], [address], [place], [place], [id number], [place] tel:[phone] [facility] No Information Mar-0 7-200 0 Harmon OD Ghassan. [address] , [address], [place], [address], [place]. tel:[phone] Family History Family Member Type Diagnosis Age At Onset No Information Payers Payer name Insurance type Covered republican ID Authoriza tion(s) No Information Social History Type Description Quantity Date Captured Comments Sex Female Smoking Status No Information Chief Complaint And Reason For Visit No Information Reason For Referral Reason For Referral No Information History Of Present Illness Encounter Date Complaint History Of Prese nt Illness No Information Functional Status Date Functional Assessmen t No Information Instructions Date Instruction Additional Infor mation No Information Assessments Type Assessment Date No Information Patient Care Teams Name Effective Dates (start - stop) Status Members No Information
--- OUTSIDE RECORDS SUMMARY | 2024-09-20 09:19 | XMS_ITS | Encounter Summary ---
Author Organization [facility] Address [facility]. [place], [place] [address] [place] [address] Care Team Providers Care Paper Tube Machine Operator Name Role Phone Allie Tavares Primary Care Provider [phone] Emmett Kaye MD Unavailable [phone] Bev Kemp MD Unavailable [phone] Isaac Alejandra MD Unavailable [phone] Emmett Palomares MD Unavailable [phone] Encounter Details Date Type Department Care Team (Latest Contact Info) Description 09/19/2024 Travel Social History Tobacco Use Types Packs/Day Years [...] Sex Assigned at Female 09/19/2024 12:55 PM INDUSTRIAL REFRIGERATION MECHANIC Legal Sex Female 7:08 PM CDT Gender Identity Not on file Sexual Orientation Not on file documented as of this encounter Plan of Treatment Not on file documented as of this encounter Visit Diagnoses Not on filedocumented in this encounter Additional Health Concerns Assessment Noted Time PHQ-9 Depression Total Score: 0 11/11/19 22 8:26 AM CDT documented as of this encounter Care Teams Paper Tube Machine Operator Relationship Specialty Start Date End Date Allie Tavares DO [address] [place] [address] PCP - General 06/20/16 Emmett Kaye MD 1 [place] [address] Consulting Physician NEPHROLOGY 04/09/24 Bev Kemp MD [address] [place] [address] OBGYN 04/09/24 Isaac Alejandra MD 3 [facility]. [place], [place] [address] UROLOGY 04/09/24 Emmett Palomares MD [address] [facility] [address] [place] [address] CARDIOVASCULAR DISEASE 04/09/24 documented as of this encounter
--- OUTSIDE RECORDS SUMMARY | 2024-09-20 09:19 | XMS_ITS | Clinical Summary ---
Author Organization [facility] Address [facility] [address] [place] [address] Care Team Providers Care Content Management Specialist Name Role Phone Allie Tavares Primary Care Provider [phone] Emmett Kaye MD Unavailable [phone] Bev Kemp MD Unavailable [phone] Isaac Alejandra MD Unavailable [phone] mEmett Palomares MD Unavailable [phone] Allergies Active Allergy Reactions Criticality Noted Date Comments Niacin Hives,Unknown 07/07/2017 Sulfa Antibiotics Hives,Unknown 07/07/2017 Sulfamethoxazole-Trimethoprim Rash Low 2014 Medications calcium carb-cholecalcife rol 600-400 MG-UNIT Tab tablet 1 tablet 2 (two) times daily. Active vitamin D3, cholecalciferol, 5000 UNITS capsule Take 1 capsule (125 mcg total) by mouth 2 (two) times a day. Active aspirin EC (ECOTRIN) 81 MG tablet Take 1 tablet (81 mg total) by mouth daily. Active albuterol sulfate HFA 108 (90 Base) MCG/ACT inhaler Inhale 2 puffs into the lungs every 4 (four) hours as needed. 017 Active estradiol 0.1 MG/GM vaginal cream Place 1 g vaginally daily as needed. 018 Active XIIDRA 5 % ophthalmic solution Ophthalmic 024 Active atenolol (TENORMIN) 25 MG tabletIndications :Essential hypertension Take 1 tablet (25 mg total) by mouth daily. 90 tablet 3 025 Active rosuvastatin (CRESTOR) 20 MG tabletIndications :Elevated LDL cholesterol level Take 1 tablet (20 mg total) by mouth nightly at bedtime. 90 tablet 3 025 Active telmisartan (MICARDIS) 40 MG tabletIndications :Essential hypertension Take 1 tablet (40 mg total) by mouth daily. 90 tablet 3 025 Active lamoTRIgine (LAMICTAL) 100 MG tabletIndications :Bipolar disorder, in full remission, most recent episode depressed (CMS/HCC HHS/HCC) Take 1 tablet (100 mg total) by mouth nightly at bedtime. 90 tablet 3 025 Active levothyroxine (SYNTHROID) 50 MCG tabletIndications :Acquired hypothyroidism Take 1 tablet (50 mcg total) by mouth daily. 90 tablet 3 025 Active lamotrigine 100 MG tablet Take 1 tablet (100 mg total) by mouth nightly at bedtime. 2024 Discontinued(R eorder) zoledronic acid 5 MG/100ML Solution infusion 015 2024 Discontinued(T herapy completed) telmisartan (MICARDIS) 40 MG tabletIndications :Essential hypertension Take 1 tablet (40 mg total) by mouth daily. 90 tablet 3 023 2024 Discontinued(R eorder) rosuvastatin (CRESTOR) 20 MG tabletIndications :Elevated LDL cholesterol level TAKE 1 TABLET(20 MG) BY MOUTH EVERY NIGHT AT BEDTIME 90 tablet 1 024 2024 Discontinued(R eorder) atenolol (TENORMIN) 25 MG tabletIndications :Essential hypertension Take 1 tablet (25 mg total) by mouth daily. 90 tablet 024 2024 Discontinued levothyroxine (SYNTHROID) 50 MCG tabletIndications :Acquired hypothyroidism Take 1 tablet (50 mcg total) by mouth daily. 90 tablet 024 2024 Discontinued HYDROcodone-chlor pheniramine ER (TUSSIONEX) 10-8 MG/5ML suspensionIndicat ions:Cough Take 5 mLs by mouth every 12 (twelve) hours as needed. Indications: Cough 115 mL 024 2024 Discontinued(T herapy completed) levothyroxine (SYNTHROID) 50 MCG tabletIndications :Acquired hypothyroidism TAKE 1 TABLET(50 MCG) BY MOUTH DAILY 90 tablet 025 2024 Discontinued(R eorder) atenolol (TENORMIN) 25 MG tabletIndications :Essential hypertension TAKE 1 TABLET(25 MG) BY MOUTH DAILY 90 tablet 025 2024 Discontinued(R eorder) telmisartan (MICARDIS) 40 MG tabletIndications :Essential hypertension Take 1 tablet (40 mg total) by mouth daily. 90 tablet 025 2024 Discontinued(R eorder) Active Problems Problem Noted Date Diagnosed Date Secondary hyperparathyroidism ([facility]) 08/27/2024 Stage 3a chronic kidney disease ([facility] ) 08/27/2024 History of positive hepatitis C 05/21/2019 Serum creatinine raised 03/29/2018 Vaginal atrophy 03/15/2018 Essential hypertension 08/25/2017 Hyperlipidemia LDL goal <70 08/25/2017 Osteoporosis 07/07/2017 Abnormal mammogram of left breast 06/08/2016 Vitamin D deficiency 03/16/2015 Menopausal state 12/30/2014 Uterine prolapse 08/29/2013 Bipolar disorder ([facility]) 06/21/2013 Coronary artery disease of n ative artery of [place] heart with stable angina pectoris 05/22/2013 Cataract 04/08/2013 Hypothyroidism 08/06/2012 Resolved Problems Problem Noted Date Diagnosed Date Resolved Date Elevated blood sugar level 03/15/2018 1 Knee pain 07/09/2014 05/25/2023 Encounters Date Type Department Care Team Description 09/19/2024 12:40 PM TODDLER NANNY Hospital Encounter [facility] [place] [address] Allie Tavares DO Arrived 09/19/2024 Travel 08/28/2024 [facility] [address] [place] [address] Tahira Demarco LPN Pre-visit Gap Closure 08/27/2024 2:00 PM TODDLER NANNY Office Visit [facility] [address], [address] [place] [address] Allie Tavares, DO Follow Up (Patient here today for annual follow up.) 08/27/2024 Travel 07/04/2024 Telephone [facility] [address], [address] [place] [address] Allie Tavares, DO Medication from Last 3 Months Immunizations Name Administration Dates Next Due Fluzone 6 Months+ Quad (0.5 mL Prefilled Syringe) 07/01/2021,05/01/2020,05/16/2019 Fluzone High Dose (IIV, trivalent, 0.5mL) 2023 Fluzone High Dose - >Age 65 (Prefilled Syringe) 05/25/2023,05/12/2022 Influenza (Generic) 06/21/2013 Influenza Adult (Generic) 05/17/2017,06/23/2016, 07/09/2014 MODERNA COVID-19 BIVALENT (1 2+), MRNA, LNP-S, PF 06/16/2022 MODERNA COVID-19 (12+) MRNA, LNP-S, PF, 100 MCG/ 0.5 ML DOSE 10/29/2020,10/01/2020 MODERNA COVID-19 (CABLE SPLICER HELPER TERRANCE CLARISSA), MRNA, LNP-S, PF, 50 MCG/ 0.25 ML DOSE 07/23/2021 Pneumococcal (Pneumovax 23) 05/16/2019 Pneumococcal (Prevnar 13) 03/15/2018 Tdap (Generic) 01/05/2021 Family History Medical History Relation Comments Hypertension Brother Stroke Brother CHF Father Heart Disease Father Hypertension Father Diabetes Maternal Grandmother Arthritis Mother RA Cancer Mother colon Hypertension Mother Relation Status Comments Brother Father Maternal Grandmother Mother (Age 95) Social History Tobacco Use Types Packs/Day Years Used Date Smoking Tobacco: Never Passive Smoke Exposure: Never Smokeless Tobacco: Never Tobacco Cessation:Counseling Given: No Alcohol Use Standard Drinks/Week Comments No 0 [...] Sex Assigned at Female 09/19/2024 12:55 PM TODDLER NANNY Legal Sex Female 7:08 PM CDT Gender Identity Not on file Sexual Orientation Not on file Last Filed Vital Signs Vital Sign Reading Time Taken Comments Blood Pressure 112/70 08/27/2024 1:44 PM TODDLER NANNY Pulse 72 08/27/2024 1:44 PM TODDLER NANNY Temperature 36.7 ??C (98 ??F) 08/27/2024 1:44 PM TODDLER NANNY Respiratory Rate 18 08/27/2024 1:44 PM TODDLER NANNY Oxygen Saturation 100% 08/27/2024 1:44 PM TODDLER NANNY Inhaled Oxygen Concentration - - Weight 62.9 kg (138 lb 9.6 oz) 08/27/2024 1:44 P M TODDLER NANNY Height 154.9 cm (5' 1 ) 08/27/2024 1:44 PM TODDLER NANNY Body Mass Index 26.19 08/27/2024 1:44 PM TODDLER NANNY Plan of Treatment Health Maintenance Due Date Last Done Comments ASCVD LDL 04/26/2024 04/26/2023, 10/0 01/2022, 12/01/2020, Additional history exists RSV Immunization or 60+ Years (1 - Risk 60-74 years 1-dose series) 04/09/2025 Postponed fro m 2012 (Going to Outside Clinic) Zoster Vaccines (1 of 2) 04/09/2025 Pos tponed from 2002 (Going to Outside Clinic) Annual Medicare Wellness Visit 04/10/2025 04/09/2024 Dexa Scan (General) 09/19/2026 09/19/2024, 06/29/2022, 06/11/2019, Additional history exists Mammogram Screening 09/19/2026 09/19/2024, 06/29/2022, 04/03/2018, Additional history exists Colorectal Cancer Screening Colonoscopy (10 Years) 09/02/2029 09/02/2019, 09/08/2011 DTaP, Tdap and Td Vaccines (2 - Td or Tdap) 01/05/2031 01/05/2021 Pneumococcal Vaccine: 65+ Years Completed 05/16/2019, 03/15/2018 Hepatitis C Completed 05/21/2019 COVID-19 Vaccine Completed 06/01/2024, , 07/23/2021, Additional history exists Influenza Adult Completed 06/01/2024, 12/2022, 05/12/2022, Additional history exists PHQ-2 (Physician Antelope) Completed 08/27/2024 Meningococcal B Vaccine Aged Out No l onger eligible based on patient's age to complete this topic Meningococcal Vaccine Aged Out No anna sole eligible based on patient's age to complete this topic RSV Immunizations Under 20 Months Aged Out No longer eligible based on patient's age to complete this topic Procedures Procedure Name Priority Date/Time Associated Diagnosis Comments BONE DENSITY/DEXA Routine 09/19/2024 1:4 1 PM TODDLER NANNY Postmenopausal MG SCREENING W EDISON NISHA DIGI Routine 09/19/2024 1:39 PM TODDLER NANNY Encounter for screening mammogram for malignant neoplasm of breast LIPID PANEL Routine 04/26/2023 10:10 AM CDT COLONOSCOPY GENERIC (SCAN ORDER) 09/02/2019 from Last 3 Months or Most Recently Relevant to Health Maintenance Results * BONE DENSITY/DEXA (09/19/2024 1:41 PM TODDLER NANNY) Anatomical Region Laterality Modality Bone Mammography 09/19/2024 4:12 PM TODDLER NANNY Impressions 09/19/2024 4:14 PM TODDLER NANNY IMPRESSION: 1. WHO Classification: Osteoporosis. 2. Interval [...] or have additional risk factors. Ordered By: ALLIE TAVARES Interpreted By: Kee Degroot, 09/19/2024 4:12 PM Narrative 09/19/2024 4:14 PM TODDLER NANNY [facility] [address] [place] [address] EXAMINATION: BONE DENSITY/DEXA INDICATIONS: Asymptomatic menopausal state [...] Procedure Note Kee Degroot MD - 09/19/2024 [facility] [address] [place] [address] EXAMINATION: BONE DENSITY/DEXA INDICATIONS: Asymptomatic menopausal state [...] or have additional risk factors. Ordered By: ALLIE TAVARES Interpreted By: Kee Degroot, 09/19/2024 4:12 PM Allie Tavares DO DEXA Final Result * MG SCREENING W EDISON NISHA DIGI (09/19/2024 1:39 PM TODDLER NANNY) Anatomical Region Laterality Modality Breast Bilateral Mammography 09/19/2024 2:41 PM TODDLER NANNY Impressions 09/19/2024 2:44 PM TODDLER NANNY ===== IMPRESSION: ===== 1. ??Stable mammographic appearance with no new findings to suggest malignancy in either breast. Assessment: ACR BI-RADS 2 - BENIGN FINDING(S) Recommendation: 1:Routine Screening Bilateral Comments: Ordered By: ALLIE TAVARES Interpreted By: Jaskaran Neumann, 09/19/2024 2:41 PM Narrative 09/19/2024 2:44 PM TODDLER NANNY [facility] [address] [place] [address] EXAMINATION: Digital bilateral screening mammogram with 3-D [...] Procedure Note Higinio Neumann MD - 09/19/2024 [facility] [address] [place] [address] EXAMINATION: Digital bilateral screening mammogram with 3-Dtomosynthesis [...] Recommendation: 1:Routine Screening Bilateral Comments: Ordered By: ALLIE TAVARES Interpreted By: Jaskaran Neumann, 09/19/2024 2:41 PM us Allie Tavares DO MAMMO Final Result * (ABNORMAL) LIPID PANEL (04/26/2023 10:10 AM CDT) CHOLESTEROL 205(H) <200 mg/dL [facility] HDL 64 > OR = 50 mg/dL [facility] TRIGLYCERIDES 154(H) <150 mg/dL [facility] LDL (CALCULATED) 114(H) mg/dL (calc) [facility] Comment: Reference range: <100 Desirable range <100 mg/dL for primary prevention; ?? <70 mg/dL for patients with CHD or diabetic patients with > or = 2 CHD risk factors. LDL-C is now calculated using the Pallavi calculation, which is a validated novel method providing better accuracy than the Friedewald equation in the estimation of LDL-C. Axel MORALES et al. BUTCH. 2013;310(19): 7343-5380 (http://education.[employer], [place]/faq/ZKV570) CHOL/HDL RATIO 3.2 <5.0 (calc) [facility] NON HDL CHOLESTEROL 141(H) <130 mg/dL (calc) [facility] Comment: For patients with diabetes plus 1 major ASCVD risk factor, treating to a non-HDL-C goal of <100 mg/dL (LDL-C of <70 mg/dL) is considered a therapeutic option. 04/26/2023 10:1 0 AM CDT 04/26/2023 10:11 AM CDT Narrative [facility] - EUGENIE ORDERS - 04/27/2023 7:59 AM CDT FASTING:YES FASTING: YES Resulting Agency Comment Performing Organization Information: ?Site ID: [id number] ?Name: [facility] ?Address: [address] [id number] ?Director: Vanessa Reid MD Allie Tavares DO LABORATORY Final Result [facility] - EUGENIE ORDERS [facility] [address] [place] [address], * COLONOSCOPY GENERIC (09/02/2019) 09/02/2019 Narrative 09/02/2019 Ordered by an unspecified provider. us Documents Scanned SCANNING Final Result from Last 3 Months or Most Recently Relevant to Health Maintenance Insurance [employer] MEDICARE Care Teams Content Management Specialist Relationship Specialty Start Date End Date Allie Tavares DO [address] [place] [address] PCP - General 06/20/16 Emmett Kaye MD 1 [place] [address] Consulting Physician NEPHROLOGY 04/09/24 Bev Kemp MD [address] [place] [address] OBGYN 04/09/24 Isaac Alejandra MD 3 [facility] [place] [address] UROLOGY 04/09/24 Emmett Palomares MD [address] [facility] [address] [place] [address] CARDIOVASCULAR DISEASE 04/09/24
--- OUTSIDE RECORDS SUMMARY | 2024-09-20 09:20 | XMS_ITS | Clinical Summary ---
Author Organization [facility] [address] Address [address] [place] [address] Care Team Providers Care Apparel Embroidery Digitizer Name Role Phone Allie Tavares MD Primary Care Provider [phone] Allergies Active Allergy Reactions Criticality Noted Date Comments Niacin Hives Medium Sulfa (Sulfonamide Antibiotics) Hives Medium 12/2017 Medications aspirin (ASPIRIN LOW DOSE) 81 mg tablet take 1 tablet by oral route every day 0 0 08/30/2016 Active calcium carbonate-vitami n D3 (CALCIUM 500 + D) 1,250mg (500mg elemental) - 200 units per tablet take 1 by Oral route 2 times every day 0 0 08/30/2016 Active levothyroxine sodium (TIROSINT) 50 mcg capsule take 1 capsule (50MCG) by oral route every day 0 05/31/2012 Active lamoTRIgine (LaMICtal) 100 mg tablet take 1 tablet (100MG) by oral route every day 0 05/31/2012 Active atenolol (TENORMIN) 25 mg tablet take 1 tablet (25MG) by oral route every day 90 2 05/31/2012 Active cholecalciferol (VITAMIN D-3) 2,000 unit capsule Take 1 capsule (2,000 Units total) by mouth daily Active Xiidra 5 % dropperette 06/14/2022 Active rosuvastatin (CRESTOR) 20 mg tablet Take 1 tablet (20 mg total) by mouth daily Active telmisartan (MICARDIS) 40 mg tablet Take 1 tablet (40 mg total) by mouth daily Active Active Problems Problem Noted Date Diagnosed Date Chest tightness 09/17/2019 Hypothyroidism 09/07/2018 Coronary artery disease of n ative artery of [place] heart with stable angina pectoris 08/25/2017 Hyperlipidemia LDL goal <70 08/25/2017 Essential hypertension 08/25/2017 Encounters Date Type Department Care Team Description 08/02/2024 9:30 AM CARPET OR RUG LAYER HELPER Office Visit [facility] Nephrology at [address] [place] [address] Emmett Kaye MD Stage 3a chronic kidney disease (HCC) (Primary Dx); Benign hypertensive kidney disease with chronic kidney disease stage I through stage IV, or unspecified(403.10); Hypercalcemia; Secondary hyperparathyroidism (HCC) 07/22/2024 Orders Only [facility] Nephrology at [address] [place] [address] Provider, MD Annalisa from Last 3 Months Surgical History Surgery Date Site/Laterality Comments CORONARY STENT PLACEMENT 08/21/2010 - 08/20/2011 Coronary Stent Placement TONSILLECTOMY tonsillectomy CATARACT EXTRACTION cataract removal LEG SURGERY leg surgery CATARACT EXTRACTION 08/21/2012 - 08/20/2013 FRACTURE SURGERY 08/21/1973 - 08/20/1974 Medical History Medical History Date Comments Hypothyroidism hypothyroidism Cardiovascular disease Coronary Artery Disease Hypertension Hypertension Hypercholesterolemia High choles terol Myocardial infarction (HCC) Myoc ardial infarction Hx Other Medical bipolar disorde r Arthritis 2010 Osteoporosis 2015 Heart disease 2011 Infectious viral hepatitis 1999 cleared 2005 Family History Medical History Relation Name Comments Heart disease Father Arcenio Heart failure Father Arcenio Congestive Hea rt Failure; Cause of : Congestive Heart Failure Hypertension Father Arcenio Heart attack Father's Brother cy Obesity Maternal Grandmother Vi Other Mother alive, healthy; Cancer Mother's Sister rosina Heart attack Paternal Grandfather william Cancer Sister liza Relation Name Status Comments Father Arcenio (Age 78) Father's Brother cy Maternal Grandmother Vi Mother Alive Mother's Sister rosina Paternal Grandfather william Sister liza Social History Tobacco Use Types Packs/Day Years Used Date Smoking Tobacco: Never Smokeless Tobacco: Never Tobacco Cessation:Counseling Given: Not Answered Alcohol Use Standard Drinks/Week Comments No 0 (1 standard drink = 0.6 oz pur e alcohol) AUDIT-C Answer Date Recorded Q1: How often do you have a drink containing alc ohol? Monthly or less 08/02/2024 Average Number of Drinks Not on file 024 Frequency of Binge Drinking Not on file 07/21 Comments Unknown Sex and Gender Information Value Date Recorded Sex Assigned at Not on file Legal Sex Female 6:01 AM CARPET OR RUG LAYER HELPER Gender Identity Not on file Sexual Orientation Not on file Obstetrics History Last Filed Vital Signs Vital Sign Reading Time Taken Comments Blood Pressure 135/85 08/02/2024 9:08 AM CARPET OR RUG LAYER HELPER Pulse 76 08/02/2024 9:08 AM CARPET OR RUG LAYER HELPER Temperature 36.5 ??C (97.7 ??F) 08/02/2024 9:08 AM CS T Respiratory Rate - - Oxygen Saturation 99% 05/14/2024 9:32 AM CDT Inhaled Oxygen Concentration - - Weight 61.7 kg (136 lb) 08/02/2024 9:08 AM CARPET OR RUG LAYER HELPER Height 154.9 cm (5' 1 ) 08/02/2024 9:08 AM CARPET OR RUG LAYER HELPER Body Mass Index 25.7 08/02/2024 9:08 AM CARPET OR RUG LAYER HELPER Plan of Treatment Health Maintenance Due Date Last Done Comments Colon Cancer Screening-Colonoscopy 1950 Depression Screening 1952 Fall Risk Assessment 1950 Hepatitis C Screening 1952 Hepatitis B Screening 1970 Zoster Vaccine (1 of 2) 2002 Well Visit 65+ 2017 Breast Cancer Screening-Mammogram 06/29/2023 06/29/2022, 06/29/2022, 04/03/2018, Additional history exists Covid-19 Vaccine (4 - 2023-2 5 season) 2024 07/23/2021, 10/29/2020, 10/01/2020 Influenza Vaccine (#1) 2024 , 05/01/2020, 05/16/2019, Additional history exists Osteoporosis Screening-Bone Density Scan 06/29/2024 06/29/2022 DTaP/Tdap/Td Vaccine (2 - Td or Tdap) 01/05/2031 01/05/2021 Pneumococcal vaccine 65+ Completed 05/16/2019, 02/19 Procedures Procedure Name Priority Date/Time Associated Diagnosis Comments PTH Routine 07/19/2024 3:33 PM CARPET OR RUG LAYER HELPER from Last 3 Months Results * PTH (07/19/2024 3:33 PM CARPET OR RUG LAYER HELPER) Blood us Historical Provider LAB BLOOD ORDERABLES Amber ruddy Result EXTERNAL LAB from Last 3 Months Insurance MEDICARE [facility] Address: [address] [address] [place] [address] [employer] MEDICARE FOR LIFE Care Teams Apparel Embroidery Digitizer Relationship Specialty Start Date End Date Allie Tavares MD PCP - General 11/18/16
--- OUTSIDE RECORDS SUMMARY | 2024-09-20 09:20 | XMS_ITS | Referral Summary ---
Author Organization [facility] [address] Address [address] [place] [address] Care Team Providers Care Sterile Processing Technician Name Role Phone Allie Tavares MD Primary Care Provider [phone] Encounters Date Type Department Care Team Description 08/02/2024 9:30 AM FUR BLOWER OPERATOR Office Visit [facility] Medical [facility] Nephrology at [address] [place] [address] Emmett Kaye MD Stage 3a chronic kidney disease (HCC) (Primary Dx); Benign hypertensive kidney disease with chronic kidney disease stage I through stage IV, or unspecified(403.10); Hypercalcemia; Secondary hyperparathyroidism (HCC) 07/22/[address] [facility] Nephrology at [address] [place] [address] ProviderAnnalisa MD from Last 3 Months Allergies Active Allergy Reactions Criticality Noted Date [...] artery disease of n ative artery of [place] heart with stable angina pectoris 08/25/2017 Hyperlipidemia LDL goal <70 08/25/2017 Essential hypertension 08/25/2017 Social History Tobacco Use Types Packs/Day Years [...] on file Legal Sex Female 6:01 AM FUR BLOWER OPERATOR Gender Identity Not on file Sexual Orientation Not on file Last Filed Vital Signs Vital Sign Reading Time Taken Comments Blood Pressure 135/85 08/02/2024 9:08 AM FUR BLOWER OPERATOR Pulse 76 08/02/2024 9:08 AM FUR BLOWER OPERATOR Temperature 36.5 ??C (97.7 ??F) 08/02/2024 9:08 AM CS T Respiratory Rate - - Oxygen Saturation 99% 05/14/2024 9:32 AM CDT Inhaled Oxygen Concentration - - Weight 61.7 kg (136 lb) 08/02/2024 9:08 AM FUR BLOWER OPERATOR Height 154.9 cm (5' 1 ) 08/02/2024 9:08 AM FUR BLOWER OPERATOR Body Mass Index 25.7 08/02/2024 9:08 AM FUR BLOWER OPERATOR Plan of Treatment Not on file Procedures Procedure Name Priority Date/Time Associated Diagnosis Comments PTH Routine 07/19/2024 3:33 PM FUR BLOWER OPERATOR from Last 3 Months Results * PTH (07/19/2024 3:33 PM FUR BLOWER OPERATOR) Blood us Historical Provider LAB BLOOD ORDERABLES Amber fox Result EXTERNAL LAB from Last 3 Months Insurance MEDICARE [facility] Address: [address] [place] [address] MEDICARE [facility] FOR LIFE Care Teams Sterile Processing Technician Relationship Specialty Start Date End Date Allie Tavares MD PCP - General 11/18/16
[2024-09-20 09:30] LABS: Basophils Percent Auto 0.8 % (0.2-1.2); Eosinophils Absolute Auto 0.5 K/mm3 (0-0.3); Eosinophils Percent Auto 9.9 % (0-4.4); Hematocrit 37.7 % (37.0-47.0); Hemoglobin 12.3 g/dL (12.0-15.0); Immature Granulocyte Absolute 0.01 K/mm3 (0.00-0.031); Immature Granulocyte Percent A 0.2 % (0-0.5); Lymphocytes Absolute Auto 1.16 K/mm3 (0.9-3.2); Lymphocytes Percent Auto 22.1 % (18.3-44.2); Mean Corpuscular HGB Conc 32.6 g/dl (32-36); Mean Platelet Volume 10.1 fl (7.4-10.4); Monocytes Absolute Auto 0.6 K/mm3 (0.1-0.6); Monocytes Percent Auto 10.5 % (2.6-8.5); Neutrophils Percent Auto 56.5 % (45.5-73.1); Platelet Count Result 217 k/mm3 (150-375); Red Cell Distribution Width 13.2 % (11.5-14.5); White Blood Count 5.2 K/mm3 (4.5-10.0)
[2024-09-20 09:38] LABS: Alanine Aminotransferase 36 U/L (6-35); Albumin Level 4.4 g/dL (3.5-5.1); Alkaline Phosphatase 73 U/L (38-126); Anion Gap 9 mmol/L (4-12); Aspartate Amino Transferase 34 U/L (14-36); Bilirubin,Total 0.5 mg/dL (0.2-1.3); Blood Urea Nitrogen 18 mg/dL (7-17); Calcium 10.2 mg/dL (8.4-10.2); Carbon Dioxide 28 mmol/L (22-30); Chloride 106 mmol/L (98-107); Cholesterol 153 mg/dL (0-200); Estimated Glomerular Filt Rate 40; Glucose 88 mg/dL (65-110); HDL Direct 78 mg/dL; Potassium 4.4 mmol/L (3.4-5.0); Sodium 143 mmol/L (137-145); Triglycerides 81 mg/dL (<150)
[2024-09-20 09:49] LABS: LDL Cholesterol Direct 57 mg/dL
[2024-09-20 10:33] LABS: Microalbumin Urine Random 9.2 mg/L (0-16.7)
[2024-09-20 10:34] LABS: Creatinine Urine 31.7 mg/dL
[2024-09-20 13:46] LABS: Vitamin D 25 Hydroxy > 126.0 ng/mL
== END 2024-09-20 08:57 | disposition home or self-care (01) ==
PROVIDERS: PCP Family Medicine; Visit Provider Family Medicine
DX: I25.118 Atherosclerotic heart disease of native coronary artery with other forms of angina pectoris (principal); E03.9 Hypothyroidism, unspecified; I12.9 Hypertensive chronic kidney disease with stage 1 through stage 4 chronic kidney disease, or unspecified chronic kidney disease; N18.31 Chronic kidney disease, stage 3a
CPT/HCPCS: 36415; 80053; 80061; 82043; 82306; 84443; 85025

== ENCOUNTER 2024-12-24 07:34 | Outpatient (CLI) | payer MEDICARE, OTHER, SELFPAY ==
--- OUTSIDE RECORDS SUMMARY | 2024-12-24 07:40 | XMS_ITS | Encounter Summary ---
Author Organization [facility] Address [address] [place] [address] Care Team Providers Care Beading Installer Name Role Phone Allie Tavares DO Primary Care Provider [phone] Emmett Kaye MD Unavailable [phone] Bev Kemp MD Unavailable [phone] Isaac Alejandra MD Unavailable [phone] Emmett Palomares MD Unavailable [phone] Reason for Visit * Reason Onset Date Comments Error 12/23/2024 Encounter Details Date Type Department Care Team (Late st Contact Info) Description 12/23/2024 Telephone [facility] Family Medicine - [place] [address], [address] [place] [address] Allie Tavares DO [address] [place] [address] Error Social History Tobacco Use Types Packs/Day Years [...] Sex Assigned at Female 09/19/2024 12:55 PM WELFARE ELIGIBILITY WORKER Legal Sex Female 7:08 PM CDT Gender Identity Not on file Sexual Orientation Not on file documented as of this encounter Plan of Treatment Not on file documented as of this encounter Visit Diagnoses Not on filedocumented in this encounter Additional Health Concerns Assessment Noted Time PHQ-9 Depression Total Score: 0 11/11/19 8:26 AM CDT documented as of this encounter Care Teams Beading Installer Relationship Specialty Start Date End Date Allie Tavares DO [address] [place] [address] PCP - General 06/20/16 Emmett Kaye MD [address] [place] [address] Consulting Physician NEPHROLOGY 04/09/24 Bev Kemp MD [address] [place] [address] OBGYN 04/09/24 Isaac Alejandra MD 3 [facility] [place] [address] UROLOGY 04/09/24 Emmett Palomares MD [address] [facility] [address] [place] [address] CARDIOVASCULAR DISEASE 04/09/24 documented as of this encounter
--- OUTSIDE RECORDS SUMMARY | 2024-12-24 07:40 | XMS_ITS | Continuity of Care Document ---
Author Organization formerly [facility] Address [address] [place] [address] Phone Care Team Providers Care Coal Shooter Name Role Phone Harmon OD, Ghassan Unavailable Unavailable Advance Directives Directive Yes / No Effective Date File Name No Information Encounters Encounter Description Practice Location Reason(s) For Visit Diagnoses Date Provider Providers Copied on Encounter [facility], [address], [place], [place], [id number], [place] tel:[phone] No Information Mar-0 7-200 0 Harmon OD Ghassan. [address] , [address], [place], [address], [place]. tel:[phone] Family History Family Member Type Diagnosis Age At Onset No Information Payers Payer name Insurance type Covered libertarian ID Authoriza tion(s) No Information Social History [...]
--- OUTSIDE RECORDS SUMMARY | 2024-12-24 07:40 | XMS_ITS | Clinical Summary ---
Author Organization [facility] [address] Address [address] [place] [address] Care Team Providers Care Corporate Quality Manager Name Role Phone Allie Tavares MD Primary Care Provider [phone] Allergies Active Allergy Reactions Criticality Noted Date Comments Niacin Hives Medium Sulfa (Sulfonamide Antibiotics) Hives Medium 12/2017 Medications aspirin (ASPIRIN LOW DOSE) 81 mg tablet take 1 tablet by oral route every day 0 0 7 Active calcium carbonate-vitami n D3 (CALCIUM 500 + D) 1,250mg (500mg elemental) - 200 units per tablet take 1 by Oral route 2 times every day 0 0 7 Active levothyroxine sodium (TIROSINT) 50 mcg capsule take 1 capsule (50MCG) by oral route every day 0 2 Active lamoTRIgine (LaMICtal) 100 mg tablet take 1 tablet (100MG) by oral route every day 0 2 Active cholecalciferol (VITAMIN D-3) 2,000 unit capsule Take 1 capsule (2,000 Units total) by mouth daily Active Xiidra 5 % dropperette 2 Active rosuvastatin (CRESTOR) 20 mg tablet Take 1 tablet (20 mg total) by mouth daily Active telmisartan (MICARDIS) 40 mg tablet Take 1 tablet (40 mg total) by mouth daily Active atenolol (TENORMIN) 25 mg tablet take 1 tablet (25MG) by oral route every day 90 2 2 12/13/19 25 Discontinu ed(Therapy completed) Active Problems Problem Noted Date Diagnosed Date Nonrheumatic mitral valve regurgitation 12/13/19 25 Chest tightness 09/17/2019 Hypothyroidism 09/07/2018 Coronary artery disease of n ative artery of [place] heart with stable angina pectoris 08/25/2017 Hyperlipidemia LDL goal <70 08/25/2017 Essential hypertension 08/25/2017 Encounters Date Type Department Care Team Description 12/12/2024 9:45 AM CDT Office Visit [facility] [address] [place] [address] Emmett Palomares MD Coronary artery disease of [place] artery of [place] heart with stable angina pectoris (Primary Dx); Essential hypertension; Hyperlipidemia LDL goal <70; Hypothyroidism, unspecified type; Nonrheumatic mitral valve regurgitation from Last 3 Months Surgical History Surgery Date Site/Laterality Comments CORONARY STENT PLACEMENT 08/21/2010 - 08/20/2011 Coronary Stent Placement TONSILLECTOMY tonsillectomy CATARACT EXTRACTION cataract removal LEG SURGERY leg surgery CATARACT EXTRACTION 08/21/2012 - 08/20/2013 FRACTURE SURGERY 08/21/1973 - 08/20/1974 HYSTERECTOMY 2023 BLADDER SURGERY 2023 Medical History Medical History Date Comments Hypothyroidism hypothyroidism Cardiovascular disease Coronary Artery Disease Hypertension Hypertension Hypercholesterolemia High choles terol Myocardial infarction (HCC) Myoc ardial infarction Hx Other Medical bipolar disorde r Arthritis 2010 Osteoporosis 2015 Heart disease 2011 Infectious viral hepatitis 1998 cleared 2005 Neuromuscular disorder (HCC) Anemia 2002 Family History Medical History Relation Name Comments Heart disease Father Arcenio Heart failure Father Arcenio Congestive Hea rt Failure; Cause of : Congestive Heart Failure Hypertension Father Arcenio Heart attack Father's Brother 1 cy Heart attack Father's Brother 2 cy Obesity Maternal Grandmother Vi Other Mother alive, healthy; Cancer Mother's Sister 1 rosina Cancer Mother's Sister 2 rosina Heart attack Paternal Grandfather william Cancer Sister 1 liza Cancer Sister 2 liza Relation Name Status Comments Father Arcenio Alive Father's Brother 1 cy Father's Brother 2 cy Alive Maternal Grandfather william Alive Maternal Grandmother Vi Alive Mother Alive Mother's Sister 1 rosina Mother's Sister 2 rosina Alive Paternal Grandfather william Alive Sister 1 liza Sister 2 liza Alive Social History Tobacco Use Types Packs/Day Years [...] on file 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 Gender Identity Not on file Sexual Orientation Not on file Obstetrics History Last Filed Vital Signs Vital Sign Reading Time Taken Comments Blood Pressure 84/58 12/12/2024 9:47 AM CDT Pulse 80 12/12/2024 9:47 AM CDT Temperature 36.5 C (97.7 F) 08/02/2024 9:08 AM POLISH MAKER Respiratory Rate - - Oxygen Saturation 95% 12/12/2024 9:47 AM CDT Inhaled Oxygen Concentration - - Weight 62.6 kg (138 lb) 12/12/2024 9:47 AM CDT Height 154.9 cm (5' 1 ) 12/12/2024 9:47 AM CDT Body Mass Index 26.07 12/12/2024 9:47 AM CDT Plan of Treatment Health Maintenance Due Date Last Done Comments Colon Cancer Screening-Colonoscopy 1952 Depression Screening 1952 Fall Risk Assessment 1952 Hepatitis C Screening 1952 Hepatitis B Screening 1970 Zoster Vaccine (1 of 2) 2002 Well Visit 65+ 2017 Covid-19 Vaccine (4 - 2023-2 5 season) 2024 07/23/2021, 10/29/2020, 10/01/2020 Breast Cancer Screening-Mammogram 09/19/2025 09/19/2024, 09/19/2024, 06/29/2022, Additional history exists Osteoporosis Screening-Bone Density Scan 09/19/2026 09/19/2024, 06/29/2022 DTaP/Tdap/Td Vaccine (2 - Td or Tdap) 01/05/2031 01/05/2021 Pneumococcal vaccine 65+ Completed 05/16/2019, 02/19 Influenza Vaccine Completed 06/01/2024, , 05/01/2020, Additional history exists Procedures Procedure Name Priority Date/Time Associated Diagnosis Comments POCT LIPID PANEL Routine 12/12/2024 9:49 AM CDT Coronary artery disease of [place] artery of [place] heart with stable angina pectoris Hyperlipidemia LDL goal <70 from Last 3 Months Results * POCT lipid panel (12/12/2024 9:49 AM CDT) Cholesterol, POC 155 mg/dL HDL, POC 69 mg/dL Triglycerides, POC 98 mg/dL LDL Cholesterol POC 66 mg/dL Chol/HDL Ratio, POC 1.0 Non-HDL Cholesterol, POC 86 mg/dL Cholesterol Total, POC 155 mg/dL Capillary blood 12/12/2024 9 :49 AM CDT Emmett Palomares MD POINT OF CARE TEST ORDERA BLES Final Result from Last 3 Months Insurance MEDICARE [employer] MEDICARE FOR LIFE Care Teams Corporate Quality Manager Relationship Specialty Start Date End Date Allie Tavares MD PCP - General 11/18/16
--- OUTSIDE RECORDS SUMMARY | 2024-12-24 07:40 | XMS_ITS | Referral Summary ---
Author Organization [facility] [address] Address [address] [place] [address] Care Team Providers Care Center Administrator Name Role Phone Allie Tavares MD Primary Care Provider [phone] Encounters Date Type Department Care Team Description 12/12/2024 9:45 AM CDT Office Visit [facility] Cardiology [address] [place] [address] Emmett Palomares MD Coronary artery disease of [place] artery of [place] heart with stable angina pectoris (Primary Dx); Essential hypertension; Hyperlipidemia LDL goal <70; Hypothyroidism, unspecified type; Nonrheumatic mitral valve regurgitation from Last 3 Months Allergies Active Allergy [...] artery disease of n ative artery of [place] heart with stable angina pectoris 08/25/2017 Hyperlipidemia [...] on file Legal Sex Female 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 Gender Identity Not on file Sexual Orientation Not on file Last Filed Vital Signs Vital Sign Reading Time Taken Comments Blood Pressure 84/58 12/12/2024 9:47 AM CDT Pulse 80 12/12/2024 9:47 AM CDT Temperature 36.5 C (97.7 F) 08/02/2024 9:08 AM SQL ARCHITECT Respiratory Rate - - Oxygen Saturation 95% 12/12/2024 9:47 AM CDT Inhaled Oxygen Concentration - - Weight 62.6 kg (138 lb) 12/12/2024 9:47 AM CDT Height 154.9 cm (5' 1 ) 12/12/2024 9:47 AM CDT Body Mass Index 26.07 12/12/2024 9:47 AM CDT Plan of Treatment Not on file Procedures Procedure Name Priority Date/Time Associated Diagnosis Comments POCT LIPID PANEL Routine 12/12/2024 9:49 AM CDT Coronary artery disease of [place] artery of [place] heart with stable angina pectoris Hyperlipidemia LDL [...] Result from Last 3 Months Insurance MEDICARE [employer] MEDICARE FOR LIFE Care Teams Center Administrator Relationship Specialty Start Date End Date Allie Tavares MD PCP - General 11/18/16
--- OUTSIDE RECORDS SUMMARY | 2024-12-24 07:40 | XMS_ITS | Clinical Summary ---
Author Organization [facility] Address [address] [place] [address] Care Team Providers Care Director Compensation Name Role Phone Allie Tavares DO Primary Care Provider [phone] Emmett Kaye MD Unavailable [phone] Bev Kemp MD Unavailable [phone] Isaac Alejandra MD Unavailable [phone] Emmett Palomares MD Unavailable [phone] Allergies Active Allergy Reactions Criticality Noted Date Comments Niacin Hives,Unknown 07/07/2017 Sulfa Antibiotics Hives,Unknown 07/07/2017 Sulfamethoxazole-Trimethoprim Rash Low 2014 Medications calcium carb-cholecalcifer ol 600-400 MG-UNIT Tab tablet 1 tablet 2 [...] lungs every 4 (four) hours as needed. 7 Active estradiol 0.1 MG/GM vaginal cream Place 1 g vaginally daily as needed. 8 Active XIIDRA 5 % ophthalmic solution Ophthalmic 4 Active atenolol (TENORMIN) 25 MG tabletIndications: Essential hypertension Take 1 tablet (25 mg total) by mouth daily. 90 tablet 3 5 Active rosuvastatin (CRESTOR) 20 MG tabletIndications: Elevated LDL cholesterol level Take 1 tablet (20 mg total) by mouth nightly at bedtime. 90 tablet 3 5 Active telmisartan (MICARDIS) 40 MG tabletIndications: Essential hypertension Take 1 tablet (40 mg total) by mouth daily. 90 tablet 3 5 Active lamoTRIgine (LAMICTAL) 100 MG tabletIndications: Bipolar disorder, in full remission, most recent episode depressed ([facility]) Take 1 tablet (100 mg total) by mouth nightly at bedtime. 90 tablet 3 5 Active levothyroxine (SYNTHROID) 50 MCG tabletIndications: Acquired hypothyroidism Take 1 tablet (50 mcg total) by mouth daily. 90 tablet 3 5 Active Active Problems Problem Noted Date Diagnosed Date Secondary hyperparathyroidism ([facility]) 08/27/19 25 Stage 3a chronic kidney disease 08/27/2024 History of positive hepatitis C 05/21/2019 Serum creatinine raised 03/29/2018 Vaginal atrophy 03/15/2018 Essential hypertension 08/25/2017 Hyperlipidemia LDL goal <70 08/25/2017 Osteoporosis 07/07/2017 Abnormal mammogram of left breast 06/08/2016 Vitamin D deficiency 03/16/2015 Menopausal state 12/30/2014 Uterine prolapse 08/29/2013 Bipolar disorder ([facility]) 06/21/2013 Coronary artery disease of n ative artery of [place] heart with stable angina pectoris 05/22/2013 Cataract 04/08/2013 Hypothyroidism 08/06/2012 Resolved Problems Problem Noted Date Diagnosed Date Resolved Date Elevated blood sugar level 03/15/2018 1 Knee pain 07/09/2014 05/25/2023 Encounters Date Type Department Care Team Description 12/23/2024 Telephone [facility] - [place] [address] [place] [address] Allie Tavares, DO Error from Last 3 Months Immunizations Immunization Administration Dates Next Due Fluzone 6 Months+ Quad (0.5 mL Prefilled Syringe) 07/01/2021,05/01/2020,05/16/2019 Fluzone High Dose (IIV, trivalent, 0.5mL) 2023 Fluzone High Dose - >Age 65 (Prefilled Syringe) 05/25/2023,05/12/2022 Influenza (Generic) 06/21/2013 Influenza Adult (Generic) 05/17/2017,06/23/2016, 07/09/2014 [facility] COVID-19 BIVALENT (1 2+), MRNA, LNP-S, PF 06/16/2022 [facility]ERNA COVID-19 (12+) MRNA, LNP-S, PF, 100 MCG/ 0.5 ML DOSE 10/29/2020,10/01/2020 [facility] COVID-19 (STOCK TRADER TERRANCE CLARISSA), MRNA, LNP-S, PF, 50 MCG/ [...] Sex Assigned at Female 09/19/2024 12:55 PM CONTINUITY EDITOR Legal Sex Female 7:08 PM CDT Gender Identity Not on file Sexual Orientation Not on file Last Filed Vital Signs Vital Sign Reading Time Taken Comments Blood Pressure 112/70 08/27/2024 1:44 PM CONTINUITY EDITOR Pulse 72 08/27/2024 1:44 PM CONTINUITY EDITOR Temperature 36.7 C (98 F) 08/27/2024 1:44 PM CONTINUITY EDITOR Respiratory Rate 18 08/27/2024 1:44 PM CONTINUITY EDITOR Oxygen Saturation 100% 08/27/2024 1:44 PM CONTINUITY EDITOR Inhaled Oxygen Concentration - - Weight 62.9 kg (138 lb 9.6 oz) 08/27/2024 1:44 P M CONTINUITY EDITOR Height 154.9 cm (5' 1 ) 08/27/2024 1:44 PM CONTINUITY EDITOR Body Mass Index 26.19 08/27/2024 1:44 PM CONTINUITY EDITOR Plan of Treatment Health Maintenance Due Date Last Done Comments ASCVD LDL 04/26/2024 04/26/2023, 01/2022, 12/01/2020, Additional history exists COVID-19 Vaccine ( season) 2024 06/01/2024, 06/16/2022, 07/23/2021, Additional history exists RSV Immunization or 60+ [...] Td or Tdap) 01/05/2031 01/05/2021 Pneumococcal Vaccine: 50+ Years Completed 05/16/2019, 03/15/2018 Hepatitis C Completed 05/21/2019 PHQ-2 (Physician Evans) Completed 08/27/2024 Meningococcal B Vaccine Aged Out [...] BONE DENSITY/DEXA Routine 09/19/2024 1:4 1 PM CONTINUITY EDITOR Postmenopausal MG SCREENING W EDISON NISHA DIGI Routine 09/19/2024 1:39 PM CONTINUITY EDITOR Encounter for screening mammogram for malignant neoplasm of breast LIPID PANEL Routine 04/26/2023 10:10 AM CDT COLONOSCOPY GENERIC (SCAN ORDER) 09/02/2019 from Last 3 Months or Most Recently Relevant to Health Maintenance Results * BONE DENSITY/DEXA (09/19/2024 1:41 PM CONTINUITY EDITOR) Anatomical Region Laterality Modality Bone Mammography 09/19/2024 4:12 PM CONTINUITY EDITOR Impressions 09/19/2024 4:14 PM CONTINUITY EDITOR IMPRESSION: 1. WHO Classification: Osteoporosis. 2. Interval [...] 09/19/2024 4:12 PM Narrative 09/19/2024 4:14 PM CONTINUITY EDITOR [facility] [place] [address] EXAMINATION: BONE DENSITY/DEXA INDICATIONS: Asymptomatic menopausal state [...] Procedure Note Kee Degroot MD - 09/19/2024 [facility] [place] [address] EXAMINATION: BONE DENSITY/DEXA INDICATIONS: Asymptomatic menopausal state [...] By: Kee Degroot, 09/19/2024 4:12 PM Allie aTvares DO DEXA Final Result * MG SCREENING W EDISON LEIVA (09/19/2024 1:39 PM CONTINUITY EDITOR) Anatomical Region Laterality Modality Breast Bilateral Mammography 09/19/2024 2:41 PM CONTINUITY EDITOR Impressions 09/19/2024 2:44 PM CONTINUITY EDITOR ===== IMPRESSION: ===== 1. Stable mammographic appearance with no new findings to suggest malignancy in either breast. Assessment: ACR BI-RADS 2 - BENIGN FINDING(S) Recommendation: 1:Routine Screening Bilateral Comments: Ordered By: ALLIE TAVARES Interpreted By: Jaskaran Neumann, 09/19/2024 2:41 PM Narrative 09/19/2024 2:44 PM CONTINUITY EDITOR [facility] [place] [address] EXAMINATION: Digital bilateral screening mammogram with 3-D [...] calcifications in either breast to suggest malignancy. Allie Tavares DO MAMMO Final Result * (ABNORMAL) LIPID PANEL (04/26/2023 10:10 AM CDT) CHOLESTEROL 205(H) <200 mg/dL [facility] HDL 64 > OR = 50 mg/dL [facility] TRIGLYCERIDES 154(H) <150 mg/dL [facility] LDL (CALCULATED) 114(H) mg/dL (calc) [facility] Comment: Reference range: <100 Desirable range <100 mg/dL for primary prevention; <70 mg/dL for patients with CHD or diabetic patients with > or = 2 CHD risk factors. LDL-C is now calculated using the Axel-Peterson calculation, which is a validated novel method providing better accuracy than the Friedewald equation in the estimation of LDL-C. Axel SS et al. BUTCH. 2013;310(19): 5828-3200 (http://education.Shareholder InSite.Shnergle/faq/JBQ165) CHOL/HDL RATIO 3.2 <5.0 (calc) [facility] NON HDL CHOLESTEROL 141(H) <130 mg/dL (calc) [facility] Comment: For patients with diabetes plus 1 major ASCVD risk factor, treating to a non-HDL-C goal of <100 mg/dL (LDL-C of <70 mg/dL) is considered a therapeutic option. 04/26/2023 10:1 0 AM CDT 04/26/2023 10:11 AM CDT Narrative [facility] - 04/27/2023 7:59 AM CDT FASTING:YES FASTING: YES Resulting Agency Comment Performing Organization Information: Site ID: ID Name: [facility] Address: [address] [place] [id number] Director: Vanessa Reid MD Allie Tavares DO LABORATORY Final Result [facility] [id number] [place] [id number] * COLONOSCOPY GENERIC (09/02/2019) 09/02/2019 Narrative 09/02/2019 Ordered by an unspecified provider. us Documents Scanned SCANNING Final Result from Last 3 Months or Most Recently Relevant to Health Maintenance Insurance [facility] MEDICARE Care Teams Director Compensation Relationship Specialty Start Date End Date Allie Tavares DO [address] [place] [address] PCP - General 06/20/16 Emmett Kaye MD [address] [place] [address] Consulting Physician NEPHROLOGY 04/09/24 Bev Kemp MD [address] [place] [address] OBGYN 04/09/24 Isaac Alejandra MD [address] [place] [address] UROLOGY 04/09/24 Emmett Palomares MD [address] [place] [address] CARDIOVASCULAR DISEASE 04/09/24
--- OUTSIDE RECORDS SUMMARY | 2024-12-24 07:40 | XMS_ITS | Encounter Summary ---
Author Organization [facility] Address [address] [place] [address] Care Team Providers Care Heat And Frost Insulator Name Role Phone Allie Tavares DO Primary Care Provider [phone] Emmett Kaye MD Unavailable [phone] Bev Kemp MD Unavailable [phone] Isaac Alejandra MD Unavailable [phone] Emmett Palomares MD Unavailable [phone] Encounter Details Date Type Department Care Team (Late st Contact Info) Description 07/01/2022 Therapy Plan [facility] [place] [address] Radha Camacho, RN Social History [...] Sex Assigned at Female 09/19/2024 12:55 PM MALT LIQUORS SALES REPRESENTATIVE Legal Sex Female 7:08 PM CDT Gender Identity Not on file Sexual Orientation Not on file COVID-19 Exposure Response Date Recorded In the last 10 days, have yo u been in contact with someone who was confirmed or suspected to have Coronavirus/COVID-19? No / Unsure 06/29/2022 12:34 PM MALT LIQUORS SALES REPRESENTATIVE documented as of this encounter Plan of Treatment Not on file documented as of this encounter Visit Diagnoses Diagnosis Osteoporosis- Primary Osteoporosis, unspecified documented in this encounter Additional Health Concerns Assessment Noted Time PHQ-9 Depression Total Score: 0 11/11/19 22 8:26 AM CDT documented as of this encounter Care Teams Heat And Frost Insulator Relationship Specialty Start Date End Date Allie Tavares DO [address] [place] [address] PCP - General 06/20/16 Emmett Kaye MD [address] [place] [address] Consulting Physician NEPHROLOGY 04/09/24 Bev Kemp MD [address] [place] [address] OBGYN 04/09/24 Isaac Aleajndra MD [address] [facility] [place] [address] UROLOGY 04/09/24 Emmett Palomares MD [address] [facility] [address] [place] [address] CARDIOVASCULAR DISEASE 04/09/24 documented as of this encounter
--- OUTSIDE RECORDS SUMMARY | 2024-12-24 07:40 | XMS_ITS | Patient Health Record ---
Author Organization [facility] Address [address] [place] [address] Care Team Providers Care Heat Curer Name Role Phone Amanda Heredia Unavailable [phone] Migration, Provider Unavailable Unavailable Allergies Allergen (clinical drug ingredient) Drug/Non Drug Allergy documented on EMR Reaction Allergy Type Onset Date Status Substance with sulfonamide structure and antibacterial mechanism of action (substance) SULFA (SULFONAMIDE ANTIBIOTICS) (uncoded) Unknown Allergy 08/25/2023 Active niacin Niacin Unknown Drug Allergy 08/25/2023 Active Reason For Referral No Information Medications Medication SIG (Take, Route, Frequency, Duration) Notes Start Date End Date Status Xiidra 5 % Ophthalmic 08/25/2023 Active Levothyroxine Sodium 50 MCG Oral 08/25/2023 Active Atorvastatin Calcium 40 MG Oral 08/25/2023 Active lamoTRIgine 100 MG 1 tablet Oral Once a day for 90 days 08/25/2023 Active Telmisartan 40 MG Oral 08/25/2023 A ctive Atenolol 25 MG Oral 08/25/2023 Acti ve Rosuvastatin Calcium 20 MG Oral 08/25/2023 Active Immunizations Vaccine Route Administration Date Status Comme nts Pneumococcal polysaccharide PPV23 Unknown 05/16/2019 Ad ministered Pneumococcal conjugate PCV 13 Unknown 03/15/2018 Admini stered Novel [id number], preservative free Unknown 06/23/2016 Administered Novel [id number], preservative free Unknown 05/17/2017 Administered Novel [id number]-[id number], preservative free Unknown 05/16/2019 Administered Novel [id number]-[id number], preservative free Unknown 05/01/2020 Administered Moderna Covid-19 Vaccine 1st dose Unknown 10/01/2020 Ad ministered Moderna Covid-19 Vaccine 1st dose Unknown 10/29/2020 Ad ministered Moderna Covid-19 Vaccine 1st dose Unknown 07/23/2021 Ad ministered Influenza virus vaccine, quadrivalent (IIV4), split virus, 0.25 mL dosage Unknown 05/02/2019 Administered Social History Tobacco Use: Social History Observation Description Date Details (start date - stop date) Never Smoker NA - NA Sex Assigned At : Social History Observation Description Sex Assigned At Female Tobacco Control (Standard) Question Answer Notes Tobacco use: Nonsmoker Problems Problem Type SNOMED Code ICD Code Onset Dates Problem Status W/U Status Risk Notes Problem Bipolar affective disorder, currently depressed, in full remission (460123838) Bipolar disorder, in full remission, most recent episode depressed (F31.76) Active confirmed Vital Signs Heart Rate 87 /min 03/04/2024 Height-cm 154.94 cm 03/04/2024 Blood pressure diastolic 80 mm Hg 03/04/2024 Weight-kg 60.06 kg 03/04/2024 Height 61.00 in 03/04/2024 Blood pressure systolic 119 mm Hg 03/04/2024 Weight 132.4 lbs 03/04/2024 BMI 25.01 kg/m2 03/04/2024 Encounters Encounter [facility] Date [facility] [place] [address] [address] [facility] [address] [address] 03/04/2024 Theneriberto Heredia Bipolar disorder, in full remission, most recent episode depressed F31.76 [place] [address] [address] 01/06/2024 Provider Migration [facility] [address] [address] 01/07/2024 Provider Migration Assessments Encounter Date Diagnosis (ICD Code) Assessment Notes Treatment Notes Treatment Clinical Notes Section Notes 03/04/2024 Bipolar disorder, in full remission, most recent episode depressed (ICD-10 - F31.76) Plan Of Treatment No Information Insurance Providers Payer Name Payer Address Payer Phone Subscriber Number Group Number Insured Name Patient Relationship to Insured Coverage Start Date Coverage End Date [place] [address] [place] [phone] [id number] MILENA JAMMIE Self - patient is the insured For Life - Medicare Supplement [address] [place] [address] [id number] MILENAORALET Self - patient is the insured Medical (General) History Medical History History ICD Code Problems: Depressed bipolar I disorder i n full remission Essential hypertension Hyperlipidemia , Surgical History Surgery Date(Month/Year) Cardiac stent
[2024-12-24 08:51] LABS: Basophils Absolute Auto 0.1 K/mm3 (0.0-0.1); Eosinophils Absolute Auto 0.6 K/mm3 (0-0.3); Eosinophils Percent Auto 10.8 % (0-4.4); Hematocrit 37.7 % (37.0-47.0); Immature Granulocyte Absolute 0.01 K/mm3 (0.00-0.031); Immature Granulocyte Percent A 0.2 % (0-0.5); Lymphocytes Absolute Auto 1.11 K/mm3 (0.9-3.2); Lymphocytes Percent Auto 21.4 % (18.3-44.2); Mean Corpuscular HGB Conc 31.8 g/dl (32-36); Mean Corpuscular Hemoglobin 29.4 pg (26-34); Mean Corpuscular Volume 92.4 fl (80-100); Mean Platelet Volume 10.5 fl (7.4-10.4); Monocytes Absolute Auto 0.6 K/mm3 (0.1-0.6); Monocytes Percent Auto 10.6 % (2.6-8.5); Neutrophils Absolute Auto 2.9 K/mm3 (1.3-6.7); Platelet Count Result 230 k/mm3 (150-375); Red Blood Count 4.08 M/mm3 (4.2-5.4); Red Cell Distribution Width 13.6 % (11.5-14.5); White Blood Count 5.2 K/mm3 (4.5-10.0)
[2024-12-24 08:59] LABS: Cholesterol 172 mg/dL (0-200); HDL Direct 81 mg/dL; Triglycerides 77 mg/dL (<150)
[2024-12-24 09:02] LABS: Anion Gap 10 mmol/L (4-12); Blood Urea Nitrogen 26 mg/dL (7-17); Calcium 10.1 mg/dL (8.4-10.2); Carbon Dioxide 26 mmol/L (22-30); Chloride 107 mmol/L (98-107); Estimated Glomerular Filt Rate 35; Glucose 91 mg/dL (65-110); Potassium 4.3 mmol/L (3.4-5.0); Sodium 143 mmol/L (137-145)
[2024-12-24 09:10] LABS: LDL Cholesterol Direct 58 mg/dL
[2024-12-24 09:12] LABS: Parathyroid Intact 54.2 pg/mL (14.5-75.2)
[2024-12-24 14:00] LABS: Microalbumin Urine Random 10.7 mg/L (0-16.7)
[2024-12-24 14:01] LABS: Creatinine Urine 35.9 mg/dL; MALB Creatinine Ratio 29.8 mg/g (0-30)
[2024-12-25 09:35] LABS: Ionized Calcium 5.4 mg/dL (4.7-5.5)
== END 2024-12-24 07:35 | disposition home or self-care (01) ==
PROVIDERS: PCP Family Medicine; Visit Provider Internal Medicine Nephrology
DX: I12.9 Hypertensive chronic kidney disease with stage 1 through stage 4 chronic kidney disease, or unspecified chronic kidney disease (principal); N18.31 Chronic kidney disease, stage 3a; I25.118 Atherosclerotic heart disease of native coronary artery with other forms of angina pectoris; E55.9 Vitamin D deficiency, unspecified; E03.9 Hypothyroidism, unspecified
CPT/HCPCS: 36415; 80048; 80061; 82043; 82306; 82330; 83970; 84443; 85025

== ENCOUNTER 2025-07-24 08:41 | Outpatient (CLI) | payer MEDICARE, OTHER, SELFPAY ==
--- OUTSIDE RECORDS SUMMARY | 2025-07-24 09:02 | XMS_ITS | Encounter Summary ---
Author Organization [facility] Address [address] [place] [address] Care Team Providers Care Lithographer Apprentice Name Role Phone Allie Tavares DO Primary Care Provider [phone] Emmett Kaye MD Unavailable [phone] Bev Kemp MD Unavailable [phone] Isaac Alejandra MD Unavailable [phone] Emmett Palomares MD Unavailable [phone] Encounter Details Date Type Department Care Team (Late st Contact Info) Description 07/01/2022 Therapy Plan [facility] [place] [address] Radha Camacho, RN Social History [...] Sex Assigned at Female 09/19/2024 12:55 PM PRINTING 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 No / Unsure 06/29/2022 12:34 PM PRINTING TECHNICIAN documented as of this encounter Plan of Treatment Not on file documented as of this encounter Visit Diagnoses Diagnosis Osteoporosis- Primary Osteoporosis, unspecified documented in this encounter Additional Health Concerns Assessment Noted Time PHQ-9 Depression Total Score: 0 11/11/19 22 8:26 AM CDT documented as of this encounter Care Teams Lithographer Apprentice Relationship Specialty Start Date End Date Allie Tavares DO [address] [place] [address] PCP - General 06/20/16 Emmett Kaye MD [address] [place] [address] Consulting Physician NEPHROLOGY 04/09/24 Bev Kemp MD [address] [place] [address] OBGYN 04/09/24 Isaac Alejandra MD [address] [facility] [place] [address] UROLOGY 04/09/24 Emmett Palomares MD [address] [facility] [address] [place] [address] CARDIOVASCULAR DISEASE 04/09/24 documented as of this encounter
--- OUTSIDE RECORDS SUMMARY | 2025-07-24 09:02 | XMS_ITS | Encounter Summary ---
Author Organization [facility] Address [address] [place] [address] Care Team Providers Care Data Integrity Consultant Name Role Phone Allie Tavares DO Primary Care Provider [phone] Emmett Kaye MD Unavailable [phone] Bev Kemp MD Unavailable Isaac Alejandra MD Unavailable [phone] Emmett Palomares MD Unavailable [phone] Encounter Details Date Type Department Care Team (Latest Contact Info) Description 07/15/2025 Scan HEALTH INFO [facility] Scanned, Doc Med Group Social History Tobacco Use Types Packs/Day Years Used Date Smoking Tobacco: Never Passive Smoke Exposure: Never Smokeless Tobacco: Never Alcohol Use Standard Drinks/Week Comments Not Currently 0 (1 standard drink = 0.6 oz pur e alcohol) less than 1/week AUDIT-C Answer Date Recorded Q1: How often [...] Date Recorded Patient Health Questionnaire-2 Score 0 05/15/2025 Comments No Sex and Gender Information Value Date Recorded Sex Assigned at Female 09/19/2024 12:55 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 Legal Sex Female 7:08 PM CDT Gender Identity Not on file Sexual Orientation Not on file documented as of this encounter Plan of Treatment Not on file documented as of this encounter Visit Diagnoses Not on filedocumented in this encounter Additional Health Concerns Assessment Noted Time PHQ-9 Depression Total Score: 0 11/11/19 22 8:26 AM CDT documented as of this encounter Care Teams Data Integrity Consultant Relationship Specialty Start Date End Date Allie Tavares DO [address] [place] [address] PCP - General 06/20/16 Emmett Kaye MD [address] [place] [address] Consulting Physician NEPHROLOGY 04/09/24 Bev Kemp MD [address] [place] [id number] OBGYN 04/09/24 Isaac Alejandra MD [address] [facility] [place] [address] UROLOGY 04/09/24 Emmett Palomares MD [address] [place] [address] CARDIOVASCULAR DISEASE 04/09/24 documented as of this encounter
--- OUTSIDE RECORDS SUMMARY | 2025-07-24 09:03 | XMS_ITS | Clinical Summary ---
Author Organization [facility] Address [address] [place] [address] Care Team Providers Care Case Making Machine Operator Name Role Phone Allie Tavares DO Primary Care Provider [phone] Emmett Kaye MD Unavailable [phone] Bev Kemp MD Unavailable [phone] Isaac Alejandra MD Unavailable [phone] Emmett Palomares MD Unavailable [phone] Allergies Active Allergy Reactions Criticality Noted Date [...] lungs every 4 (four) hours as needed. 09/26/19 17 Active estradiol 0.1 MG/GM vaginal cream Place 1 g vaginally daily as needed. 03/15/20 18 Active XIIDRA 5 % ophthalmic solution Ophthalmic 08/25/19 24 Active atenolol (TENORMIN) 25 MG tabletIndications: Essential hypertension Take 1 tablet (25 mg total) by mouth daily. 90 tablet 3 08/27/19 25 Active rosuvastatin (CRESTOR) 20 MG tabletIndications: Elevated LDL cholesterol level Take 1 tablet (20 mg total) by mouth nightly at bedtime. 90 tablet 3 08/27/19 25 Active telmisartan (MICARDIS) 40 MG tabletIndications: Essential hypertension Take 1 tablet (40 mg total) by mouth daily. 90 tablet 3 08/27/19 25 Active lamoTRIgine (LAMICTAL) 100 MG tabletIndications: Bipolar disorder, in full remission, most recent episode depressed (HHS/HCC) Take 1 tablet (100 mg total) by mouth nightly at bedtime. 90 tablet 3 08/27/19 25 Active levothyroxine (SYNTHROID) 50 MCG tabletIndications: Acquired hypothyroidism Take 1 tablet (50 mcg total) by mouth daily. 90 tablet 3 08/27/19 25 Active methocarbamol (ROBAXIN) 500 MG tabletIndications: Multiple closed fractures of pelvis without disruption of pelvic ring with routine healing, subsequent encounter Take 1 tablet (500 mg total) by mouth 4 (four) times daily for 15 days. 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 05/22/2013 Cataract 04/08/2013 Hypothyroidism 08/06/2012 Resolved Problems Problem Noted Date Diagnosed Date Resolved Date Elevated blood sugar level 03/15/2018 1 Knee pain 07/09/2014 05/25/2023 Encounters Date Type Department Care Team Description 07/15/2025 Scan [facility] Scanned, [facility] 06/27/2025 Scan [facility] Scanned, [facility] 06/26/2025 Scan [facility] Scanned, Doc [facility] 05/20/2025 Scan [facility] Scanned, Doc Med Group 05/16/2025 Results Follow-Up [facility] [address], [address] [place] [address] Allie Tavares DO XR LUMB SPINE 3V, XR PELVIS 1 OR 2 VIEWS 05/15/2025 2:12 PM CDT - 05/15/2025 11:59 PM CDT Hospital Encounter [facility] [address] [place] [address] Allie Tavares DO Discharge Disposition: Home or Self Care (Routine Discharge) 05/15/2025 1:20 PM CDT Office Visit [facility] [address], [address] [place] [address] Allie Tavares DO Follow Up (follow up from pelvic fracture, patient states she is doing okay /) 05/15/2025 Travel 05/09/2025 Orders Only [facility] [address] [place] [address] Ludwig Nguyen PA 05/08/2025 Telephone [facility] [address] [place] [address] Ludwig Nguyen PA Appointment Request; Returned Call 05/06/2025 Telephone [facility] [address], [address] [place] [address] Allie Tavares DO Error from Last 3 Months Immunizations Immunization Administration Dates Next Due Fluzone 6 Months+ Quad (0.5 mL Prefilled Syringe) 07/01/2021,05/01/2020,05/16/2019 Fluzone High Dose (IIV, triv alent, 0.5mL) 05/15/2025,06/01/2024 Fluzone High Dose - >Age 65 (Prefilled Syringe) 05/25/2023,05/12/2022 H1N1 Injectable 2009 Influenza ,05/16/2019,05/17/2017,2015 Influenza (Generic) 06/21/2013 Influenza Adult (Generic) 05/02/2019,,06/23/2016,2013 MODERNA COVID-19 BIVALENT (1 2+), MRNA, LNP-S, PF 06/16/2022 MODERNA COVID-19 (12+) MRNA, LNP-S, PF, 100 MCG/ 0.5 ML DOSE 10/29/2020,10/01/2020 MODERNA COVID-19 (SENIOR BI ARCHITECT TERRANCE CLARISSA), MRNA, LNP-S, PF, 50 MCG/ 0.25 ML DOSE 07/23/2021 Pneumococcal (Pneumovax 23) 05/16/2019 Pneumococcal (Prevnar 13) 03/15/2018 Tdap (Generic) 01/05/2021 Family History Medical History Relation Comments Hypertension Brother Stroke Brother CHF Father Heart Disease Father Hypertension Father Diabetes Maternal Grandmother Arthritis Mother RA Cancer Mother colon Hypertension Mother Relation Status Comments Brother Father Maternal Grandmother Alive Mother (Age 95) Social History Tobacco Use Types Packs/Day Years Used Date Smoking Tobacco: Never Passive Smoke Exposure: Never Smokeless Tobacco: Never Tobacco Cessation:Counseling Given: No Alcohol Use Standard Drinks/Week Comments Not Currently [...] Sex Assigned at Female 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 Legal Sex Female 7:08 PM CDT Gender Identity Not on file Sexual Orientation Not on file Last Filed Vital Signs Vital Sign Reading Time Taken Comments Blood Pressure 130/70 05/15/2025 1:13 PM CDT Pulse 63 05/15/2025 1:13 PM CDT Temperature 36.4 C (97.5 F) 05/15/2025 1:13 PM CDT Respiratory Rate 15 05/15/2025 1:13 PM CDT Oxygen Saturation 98% 05/15/2025 1:13 PM CDT Inhaled Oxygen Concentration - - Weight 62.9 kg (138 lb 9.6 oz) 08/27/2024 1:44 P M GLOBAL TECHNICAL WRITER Height 154.9 cm (5' 0.98) 05/15/2025 1:13 PM CD T Body Mass Index 26.19 08/27/2024 1:44 PM GLOBAL TECHNICAL WRITER Plan of Treatment Health Maintenance Due Date Last Done Comments Hepatitis A Vaccines (1 of 2 - Risk 2-dose series) 1971 Zoster Vaccines (1 of 2) 2002 RSV Immunization or 60+ Years (1 - Risk 60-74 years 1-dose series) 2012 Annual Medicare Wellness Visit 04/10/2025 04/09/2024 COVID-19 Vaccine ( season) 2025 06/01/2024, 06/16/2022, 07/23/2021, Additional history exists Dexa Scan (General) 09/19/2026 09/19/2024, 06/29/2022, 06/11/2019, Additional history exists Mammogram Screening 09/19/2026 09/19/2024, 06/29/2022, 04/03/2018, Additional history exists Colorectal Cancer Screening Colonoscopy (10 Years) 09/02/2029 09/02/2019, 09/08/2011 DTaP, Tdap and Td Vaccines (2 - Td or Tdap) 01/05/2031 01/05/2021 Pneumococcal Vaccine: 50+ Years Completed 05/16/2019, 03/15/2018 Hepatitis C Completed 05/21/2019 Influenza Adult Completed 05/15/2025, 05/21, 05/25/2023, Additional history exists PHQ-2 (Physician [place]) Completed 05/15/2025 Meningococcal B Vaccine Aged Out No l onger eligible based on patient's age to complete this topic Meningococcal Vaccine Aged Out No anna sole eligible based on patient's age to complete this topic RSV Immunizations Under 20 Months Aged Out No longer eligible based on patient's age to complete this topic Procedures Procedure Name Priority Date/Time Associated Diagnosis Comments XR PELVIS 1 OR 2 VIEWS [facility] 05/15/2025 2:27 PM CDT Multiple closed fractures of pelvis without disruption of pelvic ring with routine healing, subsequent encounter Acute midline low back pain without sciatica Fall, subsequent encounter XR LUMB SPINE 3V [facility] 05/15/2025 2:27 PM CDT Multiple closed fractures of pelvis without disruption of pelvic ring with routine healing, subsequent encounter Acute midline low back pain without sciatica Fall, subsequent encounter BONE DENSITY/DEXA Routine 09/19/2024 1:4 1 PM GLOBAL TECHNICAL WRITER Postmenopausal MG SCREENING W EDISON NISHA DIGI Routine 09/19/2024 1:39 PM GLOBAL TECHNICAL WRITER Encounter for screening mammogram for malignant neoplasm of breast COLONOSCOPY GENERIC (SCAN ORDER) 09/02/2019 from Last 3 Months or Most Recently Relevant to Health Maintenance Results * XR PELVIS 1 OR 2 VIEWS (05/15/2025 2:27 PM CDT) Anatomical Region Laterality Modality Pelvis Radiographic Hanna ging 05/16/2025 2:01 AM CDT Impressions 05/16/2025 2:26 AM CDT IMPRESSION: 1. Acute displaced comminuted fractures of the right superior and inferior pubic rami as described above. 2. Diastatic fracture of the right sacroiliac joint. 3. Arthritic changes in bilateral hips. Referred By: Interpreted By: Ashley Gonzalez MD, 05/16/2025 2:01 AM Narrative 05/16/2025 2:26 AM CDT [address] [address] EXAMINATION: AP radiograph of the pelvis, 1 View INDICATION: Fell, known pelvic fractures, low back pain. COMPARISON: None. FINDINGS: There are acute comminuted fractures of the right superior and inferior pubic rami with nearly one cortical width anterior displacement of the medial fragment of the right superior pubic ramus fracture and an avulsion fracture arising from the inferior cortical margin of the right inferior pelvic ramus near the right ischial tuberosity. The pubic symphysis appears intact. There is a diastatic fracture of the right sacroiliac joint. Left sacroiliac joint appears grossly intact. Arthritic changes in bilateral hips with the hips otherwise intact. Soft tissue swelling in the right hip. Mild vascular calcifications. No radiopaque foreign body. Procedure Note Ashley Gonzalez MD - 05/16/2025 [place] [id number] [place] [id number] EXAMINATION: AP radiograph of the pelvis, 1 View INDICATION: Fell, known pelvic fractures, low back pain. COMPARISON: None. FINDINGS: There are acute comminuted fractures of the right superior andinferior pubic rami with nearly one cortical width anterior displacementof the medial fragment of the right superior pubic ramus fracture and anavulsion fracture arising from the inferior cortical margin of the rightinferior pelvic ramus near the right ischial tuberosity. The pubicsymphysis appears intact. There is a diastatic fracture of the rightsacroiliac joint. Left sacroiliac joint appears grossly intact.Arthritic changes in bilateral hips with the hips otherwise intact. Softtissue swelling in the right hip. Mild vascular calcifications. Noradiopaque foreign body. IMPRESSION: 1. Acute displaced comminuted fractures of the right superior andinferior pubic rami as described above. 2. Diastatic fracture of the right sacroiliac joint. 3. Arthritic changes in bilateral hips. Referred By: Interpreted By: Ashley Gonzalez MD, 05/16/2025 2:01 AM Allie Tavares DO GENERAL IMAGING Final Result * XR LUMB SPINE 3V (05/15/2025 2:27 PM CDT) Anatomical Region Laterality Modality Spine Radiographic Hanna ging 05/16/2025 2:02 AM CDT Impressions 05/16/2025 2:30 AM CDT IMPRESSION: 1. No acute osseous abnormality in the lumbar spine. 2. Comminuted displaced fractures involving the right superior and inferior pubic rami. 3. Diastatic fracture of the right sacroiliac joint. 4. Degenerative changes in lumbar spine as detailed above. 5. Atherosclerotic calcifications in the abdominal aorta and bilateral iliac arteries without aortic aneurysm. Referred By: Interpreted By: Ashley Gonzalez MD, 05/16/2025 2:02 AM Narrative 05/16/2025 2:30 AM CDT [address] [address] EXAMINATION: XR LUMB SPINE 3V, 4 images, with lateral view repeated twice INDICATION: Fall 04/19/35 with pelvic fractures known and low back pain concern about compression fracture COMPARISON: None TECHNIQUE: AP, 2 lateral, and coned-down lateral views of the lumbar spine were obtained FINDINGS: Please see AP pelvis x-ray done regarding acute comminuted displaced fractures of the right superior and inferior pubic rami and diastatic fracture of the right sacroiliac joint, which are also visualized on the AP view of the lumbar spine x-ray exam. No acute fracture or dislocation involving the lumbar spine. Preservation of normal lumbar lordosis and normal vertebral height. The left sacroiliac joint is intact. Mild osteopenia. Slight degenerative retrolisthesis of L2 on L3 and L3 on L4. Normal alignment of the remaining lumbar spine. Degenerative loss of disc height at multiple levels in lumbar spine, best seen from L2 to L5. Facet arthropathy at L5-S1 and to a lesser extent at L4-5 and L3-4. Paraspinal soft tissues are unremarkable. Atherosclerotic calcifications are seen in the abdominal aorta and iliac arteries without evidence of aneurysm. Procedure Note Ashley Gonzalez MD - 05/16/2025 [facility] [address] [place] [address] EXAMINATION: XR LUMB SPINE 3V, 4 images, with lateral view repeatedtwice INDICATION: Fall 04/19/35 with pelvic fractures known and low back painconcern about compression fracture COMPARISON: None TECHNIQUE: AP, 2 lateral, and coned-down lateral views of the lumbarspine were obtained FINDINGS: Please see AP pelvis x-ray done regarding acute comminuteddisplaced fractures of the right superior and inferior pubic rami anddiastatic fracture of the right sacroiliac joint, which are alsovisualized on the AP view of the lumbar spine x-ray exam. No acutefracture or dislocation involving the lumbar spine. Preservation ofnormal lumbar lordosis and normal vertebral height. The left sacroiliacjoint is intact. Mild osteopenia. Slight degenerative retrolisthesis ofL2 on L3 and L3 on L4. Normal alignment of the remaining lumbar spine.Degenerative loss of disc height at multiple levels in lumbar spine, bestseen from L2 to L5. Facet arthropathy at L5-S1 and to a lesser extent atL4-5 and L3-4. Paraspinal soft tissues are unremarkable. Atheroscleroticcalcifications are seen in the abdominal aorta and iliac arteries withoutevidence of aneurysm. IMPRESSION: 1. No acute osseous abnormality in the lumbar spine. 2. Comminuted displaced fractures involving the right superior andinferior pubic rami. 3. Diastatic fracture of the right sacroiliac joint. 4. Degenerative changes in lumbar spine as detailed above. 5. Atherosclerotic calcifications in the abdominal aorta and bilateraliliac arteries without aortic aneurysm. Referred By: Interpreted By: Ashley Gonzalez MD, 05/16/2025 2:02 AM Allie Tavares DO GENERAL IMAGING Final Result * BONE DENSITY/DEXA (09/19/2024 1:41 PM GLOBAL TECHNICAL WRITER) Anatomical Region Laterality Modality Bone Mammography 09/19/2024 4:12 PM GLOBAL TECHNICAL WRITER Impressions 09/19/2024 4:14 PM GLOBAL TECHNICAL WRITER IMPRESSION: 1. WHO Classification: Osteoporosis. 2. Interval [...] 09/19/2024 4:12 PM Narrative 09/19/2024 4:14 PM GLOBAL TECHNICAL WRITER [facility] [address] [place] [address] EXAMINATION: BONE DENSITY/DEXA INDICATIONS: Asymptomatic menopausal state [...] Procedure Note Kee Degroot MD - 09/19/2024 [facility] [address] [place] [address] EXAMINATION: BONE DENSITY/DEXA INDICATIONS: Asymptomatic menopausal state [...] W EDISON NISHA DIGI (09/19/2024 1:39 PM GLOBAL TECHNICAL WRITER) Anatomical Region Laterality Modality Breast Bilateral Mammography 09/19/2024 2:41 PM GLOBAL TECHNICAL WRITER Impressions 09/19/2024 2:44 PM GLOBAL TECHNICAL WRITER ===== IMPRESSION: ===== 1. Stable mammographic appearance with no new findings to suggest malignancy in either breast. Assessment: ACR BI-RADS 2 - BENIGN FINDING(S) Recommendation: 1:Routine Screening Bilateral Comments: Ordered By: ALLIE TAVARES Interpreted By: Jaskaran Neumann, 09/19/2024 2:41 PM Narrative 09/19/2024 2:44 PM GLOBAL TECHNICAL WRITER [facility] [address] [place] [address] EXAMINATION: Digital bilateral screening mammogram with 3-D [...] calcifications in either breast to suggest malignancy. us Allie Gail Tavares MAMMO Final Result * COLONOSCOPY GENERIC (09/02/2019) 09/02/2019 Narrative 09/02/2019 Ordered by an unspecified provider. us Documents Scanned SCANNING Final Result from Last 3 Months or Most Recently Relevant to Health Maintenance Insurance [address] [place] [id number] MEDIC[employer] Care Teams Case Making Machine Operator Relationship Specialty Start Date End Date Allie Tavares DO [address] [place] [address] PCP - General 06/20/16 Emmett Kaye MD [address] [place] [address] Consulting Physician NEPHROLOGY 04/09/24 Bev Kemp MD [address] [place] [address] OBGYN 04/09/24 Isaac Alejandra MD [address] [facility] [place] [address] UROLOGY 04/09/24 Emmett Palomares MD [address] [facility] [address] [place] [address] CARDIOVASCULAR DISEASE 04/09/24
--- OUTSIDE RECORDS SUMMARY | 2025-07-24 09:03 | XMS_ITS | Clinical Summary ---
Author Organization [facility] [address] Address [address] [place] [address] Care Team Providers Care Gate Manager Name Role Phone Allie Tavares MD Primary Care Provider [phone] Allergies Active Allergy Reactions Criticality Noted Date [...] oral route every day 0 05/31/2012 Active cholecalciferol (VITAMIN D-3) 2,000 unit [...] artery disease of n ative artery of [place] heart with stable angina pectoris 08/25/2017 Hyperlipidemia LDL goal <70 08/25/2017 Essential hypertension 08/25/2017 Encounters Date Type Department Care Team Description 07/22/2025 Telephone [facility] Nephrology at [address] [place] [address] Emmett Kaye MD 06/19/2025 10:30 AM CDT Office Visit [facility] Cardiology [address] [place] [address] Emmett Palomares MD Coronary artery disease of [place] artery of [place] heart with stable angina pectoris (Primary Dx); Essential hypertension; Hyperlipidemia LDL goal <70; Nonrheumatic mitral valve regurgitation from Last 3 Months Surgical History Surgery Date Site/Laterality Comments CORONARY STENT PLACEMENT 08/21/2010 - 08/20/2011 Coronary Stent Placement TONSILLECTOMY tonsillectomy CATARACT EXTRACTION cataract removal LEG SURGERY leg surgery CATARACT EXTRACTION 08/21/2012 - 08/20/2013 FRACTURE SURGERY 08/21/1973 - 08/20/1974 HYSTERECTOMY 2023 BLADDER SURGERY 2023 SHUNT EXTERNALIZATION 2012 Medical History Medical History Date Comments Hypothyroidism hypothyroidism Cardiovascular disease Coronary Artery Disease Hypertension Hypertension Hypercholesterolemia High choles terol Myocardial infarction (HCC) Myoc ardial infarction Hx Other Medical bipolar disorde r Arthritis 2010 Osteoporosis 2015 Heart disease 2011 Infectious viral hepatitis 1998 cleared 2005 Neuromuscular disorder Anemia 2002 Family History Medical History Relation Name Comments Heart disease Father Arcenio Heart failure Father Arcenio Congestive Hea rt Failure; Cause of : Congestive Heart Failure Hypertension Father Arcenio Heart attack Father's Brother 1 cy Heart attack Father's Brother 2 cy Obesity Maternal Grandmother Vi Cancer Mother Other Mother alive, healthy; Cancer Mother's Sister [...] on file Legal Sex Female 6:01 AM CORPORATE STRATEGY ANALYST Gender Identity Not on file Sexual Orientation Not on file Last Filed Vital Signs Vital Sign Reading Time Taken Comments Blood Pressure 132/76 06/19/2025 10:20 AM CDT Pulse 69 06/19/2025 10:20 AM CDT Temperature 36.5 C (97.7 F) 08/02/2024 9:08 AM CORPORATE STRATEGY ANALYST Respiratory Rate - - Oxygen Saturation 98% 06/19/2025 10:20 AM CDT Inhaled Oxygen Concentration - - Weight 63 kg (139 lb) 06/19/2025 10:20 AM CDT Height 154.9 cm (5' 1) 06/19/2025 10:20 AM CDT Body Mass Index 26.26 06/19/2025 10:20 AM CDT Plan of Treatment Health Maintenance Due Date Last Done Comments Colon Cancer Screening-Colonoscopy 1952 Depression Screening 1950 Fall Risk Assessment 1950 Hepatitis C Screening 1952 Hepatitis B Screening 1970 Zoster Vaccine (1 of 2) 2002 Well Visit 65+ 2017 Covid-19 Vaccine (4 - 2024-2 6 season) 2025 07/23/2021, 10/29/2020, 10/01/2020 Breast Cancer Screening-Mammogram 09/19/2025 09/19/2024, 09/19/2024, 06/29/2022, Additional history exists Osteoporosis Screening-Bone Density Scan 09/19/2026 09/19/2024, 06/29/2022 DTaP/Tdap/Td Vaccine (2 - Td or Tdap) 01/05/2031 01/05/2021 Pneumococcal vaccine 65+ Completed 05/16/2019, 02/19 Influenza Vaccine Completed 05/15/2025, , 07/01/2021, Additional history exists Insurance MEDICARE [employer] MEDICARE [employer] Care Teams Gate Manager Relationship Specialty Start Date End Date Allie Tavares MD PCP - General 11/18/16
--- OUTSIDE RECORDS SUMMARY | 2025-07-24 09:03 | XMS_ITS | Patient Health Record ---
Author Organization [facility] Address [address] [place] [address] Care Team Providers Care Burlap Spreader Name Role Phone Amanda Heredia Unavailable [phone] Allergies Allergen (clinical drug ingredient) Drug/Non Drug Allergy documented on EMR Reaction Allergy Type Onset Date Status Substance with sulfonamide structure and antibacterial mechanism of action (substance) SULFA (SULFONAMIDE ANTIBIOTICS) (uncoded) Unknown Allergy 08/25/2023 Active niacin Niacin Unknown Drug Allergy 08/25/2023 Active Reason For Referral No Information Medications Medication SIG (Take, Route, Frequency, Duration) Notes Start Date End Date Status Xiidra 5 % Solution Ophthalmic 08/25/2023 Active Levothyroxine Sodium 50 MCG Tablet Oral 08/25/2023 Active Atorvastatin Calcium 40 MG Tablet Oral 08/25/2023 Active lamoTRIgine 100 MG Tablet 1 tablet Oral Once a day; Duration: 90 days 08/25/2023 Active Telmisartan 40 MG Tablet Oral 08/25/2023 Active Atenolol 25 MG Tablet Oral 08/25/2023 Active Rosuvastatin Calcium 20 MG Tablet Oral 08/25/2023 Active Immunizations Vaccine Route Administration Date Status Comme nts Influenza virus vaccine, quadrivalent (IIV4), split virus, 0.25 mL dosage Unknown 05/02/2019 Administered Moderna Covid-19 Vaccine 1st dose Unknown 10/01/2020 Ad ministered Moderna Covid-19 Vaccine 1st dose Unknown 10/29/2020 Ad ministered Moderna Covid-19 Vaccine 1st dose Unknown 07/23/2021 Ad ministered Novel [id number], preservative free Unknown 06/23/2016 Administered Novel [id number], preservative free Unknown 05/17/2017 Administered Novel [id number], preservative free Unknown 05/16/2019 Administered Novel [id number], preservative free Unknown 05/01/2020 Administered Pneumococcal conjugate PCV 13 Unknown 03/15/2018 Admini stered Pneumococcal polysaccharide PPV23 Unknown 05/16/2019 Ad ministered Social History Tobacco Use: Social History Observation Description Date Details (start date - stop date) Never Smoker NA - NA Sex Assigned At : Social History Observation Description Sex Assigned At Female Social History Tobacco Use: Social Info Question Answer Notes Tobacco Control (Standard) Tobacco use: Nonsmoker Additional Details Category Social Info Options Details Migrated Social History Migrated Social History Alcohol Intake: None 01/15/2020,Tobacco Years: Never smoker 01/15/2020 Drug/Alcohol: Do you smoke marijuana? Den ies Do you drink alcohol? Yes, not v lima often Problems Problem Type SNOMED Code ICD Code Onset Dates Problem Status W/U Status Risk Notes Problem Bipolar affective disorder, currently depressed, in full remission (113166340) Bipolar disorder, in full remission, most recent episode depressed (F31.76) Active confirmed Plan Of Treatment No Information Insurance Providers Payer Name Payer Address Payer Phone Subscriber Number Group Number Insured Name Patient Relationship to Insured Coverage Start Date Coverage End Date [place] [address] [place] [phone] [id number] JAMMIE ABBOTT Self - patient is the insured For Life - Medicare Supplement [address] [place] [address] [id number] JAMMIE ABBOTT Self - patient is the insured Medical (General) History Medical History History ICD Code Problems: Depressed bipolar I disorder i n full remission Essential hypertension Hyperlipidemia , Surgical History Surgery Date(Month/Year) Cardiac stent
[2025-07-24 09:30] LABS: Anion Gap 5 mmol/L (4-12); Blood Urea Nitrogen 30 mg/dL (7-17); Calcium 11.3 mg/dL (8.4-10.2); Carbon Dioxide 29 mmol/L (22-30); Chloride 103 mmol/L (98-107); Estimated Glomerular Filt Rate 35; Glucose 89 mg/dL (65-110); Potassium 4.1 mmol/L (3.4-5.0); Sodium 137 mmol/L (137-145)
== END 2025-07-24 08:42 | disposition home or self-care (01) ==
LOC: ANHLAB 08:43
PROVIDERS: PCP Family Medicine; Visit Provider Internal Medicine Nephrology
DX: N18.31 Chronic kidney disease, stage 3a (principal)
CPT/HCPCS: 36415; 80048